=== PATIENT | male | born 1970 | race African-American/Black ===

== ENCOUNTER 2022-01-11 11:34 | Inpatient (IN) | payer SELFPAY ==
[2022-01-11] MEDS ORDERED: ASPIRIN 81 MG CHEWABLE TABLET ONE (12:13)
[2022-01-11] MEDS ORDERED: AZITHROMYCIN 250 MG TAB ONE (12:13)
[2022-01-11] MEDS ORDERED: NA CHLORIDE 0.9% 500 ML ONE ×2 (12:14→14:31)
[2022-01-11] MEDS ORDERED: FAMOTIDINE 20 MG TAB ONE (12:14)
[2022-01-11] MEDS ORDERED: NA CHLORIDE 0.9% 1,000 ML ONE ×3 (12:14→22:42)
--- NOTE | 2022-01-11 12:25 | RAD REPORT ---
EXAM DESCRIPTION: Danilo Single View01/11/2022 12:10 pm CLINICAL HISTORY: Cough COMPARISON: none FINDINGS: Left upper lobe consolidation. Additional bilateral pulmonary opacities. Heart is normal size. IMPRESSION: Bilateral pulmonary opacities left greater than right likely pneumonia
[2022-01-11 12:39] LABS: Absolute Lymphocytes (CBC) 1.5 K/uL (0.7-4.9); Hematocrit 36.6 % (39.6-49.0); Lymphocytes % 8.2 % (15.3-44.8); MCV 84.6 fL (80-100); MPV 8.1 fL (7.6-11.3); RBC Red Blood Cell Count 4.33 M/uL (4.33-5.43)
--- NOTE | 2022-01-11 12:42 | EDPHYS ---
Physician Documentation [facility] Name: Srinivas Crawford III Age: 51 yrs Sex: Male : 1970 Arrival Date: 01/11/2022 Time: 11:36 Bed 6 Private MD: ED Physician Collin Campbell HPI: 01/11 12:32 This 51 yrs old Black Male presents to ER via EMS with complaints of URI AND SOB, DIZZY.jeremy 12:32 The patient or guardian reports airway noise, cough, difficulty breathing, flu jeremy symptoms, arthralgias, low-grade fever, myalgias. Onset: The symptoms/episode began/occurred 6 day(s) ago. Modifying factors: The symptoms are alleviated by remaining still, the symptoms are aggravated by activity. NO IMMUNIZATIONS, 6-7 DAYS WITH COUGH AND URI SYMPTOMS, COVID EXPOSURE AT WORK. The patient presents with dizziness, generalized weakness. Modifying factors: The symptoms are alleviated by nothing, the symptoms are aggravated by nothing. Historical: - Allergies: 11:37 No Known Allergies; [place] - PMHx: 11:37 Hypertensive disorder; [place] - Immunization history:: Adult Immunizations up to date. - Social history:: Smoking status: Patient denies any tobacco usage or history of. ROS: 12:36 Eyes: Negative for injury, pain, redness, and discharge, ENT: Negative for injury, jeremy pain, and discharge, Neck: Negative for injury, pain, and swelling, Cardiovascular: Negative for chest pain, palpitations, and edema, Abdomen/GI: Negative for abdominal pain, nausea, vomiting, diarrhea, and constipation, Back: Negative for injury and pain, : Negative for injury, bleeding, discharge, and swelling, MS/Extremity: Negative for injury and deformity, Skin: Negative for injury, rash, and discoloration, Neuro: Negative for headache, weakness, numbness, tingling, and seizure. 12:36 Constitutional: Positive for body aches, chills, fatigue, fever. 12:36 Respiratory: Positive for cough, "sounds productive", dyspnea on exertion, orthopnea, shortness of breath, on exertion. wheezing, expiratory. Exam: 12:36 Constitutional: This is a well developed, well nourished patient who is awake, alert, jeremy and in no acute distress. Head/Face: Normocephalic, atraumatic. Eyes: Pupils equal round and reactive to light, extra-ocular motions intact. Lids and lashes normal. Conjunctiva and sclera are non-icteric and not injected. Cornea within normal limits. Periorbital areas with no swelling, redness, or edema. ENT: Nares patent. No nasal discharge, no septal abnormalities noted. Tympanic membranes are normal and external auditory canals are clear. Oropharynx with no redness, swelling, or masses, exudates, or evidence of obstruction, uvula midline. Mucous membranes moist. Neck: Trachea midline, no thyromegaly or masses palpated, and no cervical lymphadenopathy. Supple, full range of motion without nuchal rigidity, or vertebral point tenderness. No Meningismus. Chest/axilla: Normal chest wall appearance and motion. Nontender with no deformity. No lesions are appreciated. Cardiovascular: Regular rate and rhythm with a normal S1 and S2. No gallops, murmurs, or rubs. Normal PMI, no JVD. No pulse deficits. Abdomen/GI: Soft, non-tender, with normal bowel sounds. No distension or tympany. No guarding or rebound. No evidence of tenderness throughout. Back: No spinal tenderness. No costovertebral tenderness. Full range of motion. Male : Normal genitalia with no discharge or lesions. Skin: Warm, dry with normal turgor. Normal color with no rashes, no lesions, and no evidence of cellulitis. MS/ Extremity: Pulses equal, no cyanosis. Neurovascular intact. Full, normal range of motion. Neuro: Awake and alert, GCS 15, oriented to person, place, time, and situation. Cranial nerves II-XII grossly intact. Motor strength 5/5 in all extremities. Sensory grossly intact. Cerebellar exam normal. Normal gait. Psych: Awake, alert, with orientation to person, place and time. Behavior, mood, and affect are within normal limits. 12:36 Respiratory: mild respiratory distress is noted, Respirations: normal, Breath sounds: are clear throughout, Respiratory rate: COUGH AND CONGESTION, WORSE 12:51 ECG was reviewed by the Attending Physician. [facility] 16:03 ECG was reviewed by the Attending Physician. [facility] Vital Signs: 11:36 BP 132 / 75; Pulse 88; Resp 22; Temp 99.0(O); Pulse Ox 100% on R/A; Weight 127.01 kg; [place] Height 5 ft. (152.40 cm); 12:00 BP 118 / 59; Pulse 88; Resp 24; Pulse Ox 93% on R/A; [place] 12:45 BP 115 / 63; Pulse 87; Resp 24; Pulse Ox 94% on R/A; [place] 12:47 BP 132 / 50; Pulse 88; Resp 22; Pulse Ox 99% on R/A; [place] 13:00 BP 127 / 87; Pulse 89; Resp 24; Pulse Ox 94% on R/A; [facility] 14:14 BP 138 / 73; Pulse 99; Resp 26; Pulse Ox 100% on 28% BiPAP; [place] 14:47 BP 143 / 64; Pulse 101; Resp 26; Pulse Ox 100% on 28% BiPAP; [place] 15:00 BP 137 / 59; Pulse 96; Resp 26; Pulse Ox 98% on 28% BiPAP; [place] 15:00 BP 161 / 86; Pulse 99; Resp 24; Pulse Ox 98% on 28% BiPAP; [facility] 15:50 BP 156 / 80; Pulse 98; Resp 24; Pulse Ox 100% on 28% BiPAP; [place] 17:30 BP 144 / 76; Pulse 86; Resp 26; Pulse Ox 100% on 28% BiPAP; [facility] 11:36 Body Mass Index 54.68 (127.01 kg, 152.40 cm) [facility] MDM: 11:45 Patient medically screened. [facility] 12:37 Differential diagnosis: bronchitis, flu, URI. Antibiotic administration: Rocephin and jeremy Zithromax given. Differential Diagnosis altered mental status, sepsis, flu, Obstructed Airway Bronchitis Influenza Upper Respiratory Infection Sinusitis Pharyngitis. Differential diagnosis: cardiac arrhythmia, CVA, generalized weakness. Data reviewed: vital signs, nurses notes, lab test result(s), EKG, radiologic studies, plain films. Data interpreted: ekg monitor: rate is 88 beats/min, rhythm is regular, Pulse oximetry: on room air is 100 %. Test interpretation: by ED physician or midlevel provider: ECG, plain radiologic studies. Counseling: I had a detailed discussion with the patient and/or guardian regarding: the historical points, exam findings, and any diagnostic results supporting the discharge/admit diagnosis, lab results, radiology results, the need for further work-up and treatment in the hospital. 01/11 11:46 Order name: Basic Metabolic Panel; Complete Time: 15:09 jeremy 01/11 11:46 Order name: CBC with Diff; Complete Time: 12:52 [facility] 01/11 11:46 Order name: D-Dimer; Complete Time: 12:58 [facility] 01/11 11:46 Order name: LFT's; Complete Time: 15:09 [facility] 01/11 11:46 Order name: Magnesium; Complete Time: 15:09 [facility] 01/11 11:46 Order name: NT PRO-BNP; Complete Time: 15:09 [facility] 01/11 11:46 Order name: PT-INR; Complete Time: 12:58 [facility] 01/11 11:46 Order name: Troponin HS; Complete Time: 15:09 [facility] 01/11 11:56 Order name: SARS RAPID; Complete Time: 13:02 [facility] 01/11 12:22 Order name: Sed Rate; Complete Time: 13:42 [facility] 01/11 12:22 Order name: CRP; Complete Time: 13:20 [facility] 01/11 12:30 Order name: Blood Culture Adult (2) [facility] 01/11 12:34 Order name: SARS-COV-2 RT PCR (Document "Date of Onset" if Symptomatic); Complete Time: em1 14:11 01/11 12:38 Order name: Lactate; Complete Time: 13:10 em1 01/11 12:57 Order name: ABG; Complete Time: 15:09 [facility] 01/11 13:17 Order name: Uric Acid [facility] 01/11 13:22 Order name: LDH [facility] 01/11 13:25 Order name: Urine Osmolality [facility] 01/11 13:25 Order name: Urine Potassium Random [facility] 01/11 13:25 Order name: Urine Sodium Random [facility] 01/11 14:33 Order name: Uric Acid; Complete Time: 15:09 EDMO 01/11 14:33 Order name: Lactic Dehydrogenase; Complete Time: 15:09 EDMO 01/11 15:06 Order name: Urine Dipstick-Ancillary; Complete Time: 15:09 EDMS 01/11 15:10 Order name: Chem 7 [facility] 01/11 15:21 Order name: UR SODIUM; Complete Time: 16:02 EDMS 01/11 15:21 Order name: UR POTASSIUM; Complete Time: 16:02 EDMS 01/11 16:02 Order name: Osmolality, Urine; Complete Time: 16:10 EDMO 01/11 16:35 Order name: Basic Metabolic Panel; Complete Time: 16:45 EDMS 08/07 16:57 Order name: Hemoglobin A1c; Complete Time: 18:36 EDMS 01/11 17:01 Order name: Lipid Profile; Complete Time: 18:36 EDMS 01/11 11:46 Order name: XRAY Chest (1 view); Complete Time: 12:52 [facility] 01/11 13:10 Order name: CT Chest Abdomen Pelvis W/O Contrast [facility] 01/11 13:15 Order name: BIPAP [facility] 01/11 14:58 Order name: CT; Complete Time: 15:09 EDMS 01/11 17:58 Order name: NM; Complete Time: 18:36 EDMS 01/11 20:12 Order name: XRAY Chest (1 view) bb 01/11 20:41 Order name: RAD EDMS 01/12 07:09 Order name: CBC with Automated Diff EDMS 01/12 07:25 Order name: Glucose, Ancillary Testing EDMS 01/12 07:44 Order name: Comprehensive Metabolic Panel EDMS 01/12 08:01 Order name: PTH Intact EDMS 01/12 08:08 Order name: Phosphorus EDMS 01/12 08:08 Order name: Creatine Phosphokinase EDMS 01/12 08:08 Order name: Thyroid Stimulating Hormone EDMS 01/12 09:11 Order name: Rheumatoid Factor EDMS 01/12 09:31 Order name: Miscellaneous Test Lab EDMS 01/12 11:57 Order name: Glucose, Ancillary Testing EDMS 01/12 17:28 Order name: Glucose, Ancillary Testing EDMS 01/12 22:03 Order name: Glucose, Ancillary Testing EDMS 01/11 11:46 Order name: EKG; Complete Time: 11:48 [facility] 01/11 11:46 Order name: Cardiac monitoring; Complete Time: 12:42 [facility] 01/11 11:46 Order name: EKG - Nurse/Tech; Complete Time: 12:42 [facility] 01/11 11:46 Order name: IV Saline Lock; Complete Time: 12:42 [facility] 01/11 11:46 Order name: Labs collected and sent; Complete Time: 12:42 [facility] 01/11 11:46 Order name: O2 Per Protocol; Complete Time: 12:42 [facility] 01/11 11:46 Order name: O2 Sat Monitoring; Complete Time: 12:42 [facility] 01/11 12:57 Order name: Almonte; Complete Time: 14:14 [facility] 01/11 12:57 Order name: IV Saline Lock - Large Bore; Complete Time: 12:58 [facility] 01/11 15:10 Order name: EKG; Complete Time: 15:14 [facility] 01/11 15:10 Order name: EKG - Nurse/Tech; Complete Time: 15:45 [facility] EC:51 Rate is 78 beats/min. Rhythm is regular. MO interval is normal. QRS interval is normal. jeremy QT interval is normal. No Q waves. T waves are Normal. T waves are Peaked. No ST changes noted. Clinical impression: Suggests hyperkalemia. Interpreted by me. Reviewed by me. 16:03 Rate is 85 beats/min. Rhythm is regular. QRS Nelson is Normal. MO interval is normal. QRS jeremy interval is normal. QT interval is normal. No Q waves. T waves are Normal. T waves are Peaked. No ST changes noted. Clinical impression: NSR w/ Non-specific ST/T Changes, Suggests hyperkalemia, and No evidence of ischemia. Interpreted by me. Reviewed by me. Administered Medications: 13:24 Discontinued: NS 0.9% 1000 ml IV at 125 ml/hr continuous jeremy 12:42 Drug: NS 0.9% 500 ml Route: IV; Rate: bolus; Site: right antecubital; [facility] 13:46 Follow up: Response: No adverse reaction [place] 14:12 Follow up: IV Status: Completed infusion [facility] 12:42 Drug: NS 0.9% 1000 ml Route: IV; Rate: 125 ml/hr; Site: left antecubital; [facility] 12:42 Drug: Pepcid (famotidine) 40 mg Route: PO; [place] 14:11 Follow up: Response: No adverse reaction [place] 12:42 Drug: Aspirin Chewable Tablet 324 mg Route: PO; [facility] 14:16 Follow up: Response: No adverse reaction [place] 12:42 Drug: Zithromax (azithromycin) 500 mg Route: PO; [facility] 14:16 Follow up: Response: No adverse reaction [place] 12:46 Drug: SOLU-Medrol (methylPrednisoLONE) 125 mg Route: IVP; Site: right antecubital; [facility] 12:47 Follow up: Response: No adverse reaction [place] 13:01 CANCELLED (Duplicate Order): Lasix (furosemide) 40 mg IVP once; give over 2 minutes jeremy 13:12 Not Given (Duplicate Order): D50W 50 ml IVP once; (1 amp) jeremy 13:41 Drug: Sodium Bicarbonate 0.5 amp Route: IVP; Site: left antecubital; [facility] 14:10 Follow up: Response: No adverse reaction [place] 14:10 Follow up: Response: No adverse reaction [facility] 13:42 Drug: Insulin Regular Human 10 units {Co-Signature: hb (Aviva Acosta RN).} Route: [place] IVP; Site: left antecubital; 14:13 Follow up: Response: No adverse reaction [place] 13:42 Drug: Kayexalate (polystyrene) 60 grams Route: PO; [facility] 14:13 Follow up: Response: No adverse reaction [place] 13:42 Drug: Albuterol - atroVENT (ipratropium) (3:1) (2.5 mg - 0.5 mg) 3 ml Route: Nebulizer; [place] 14:11 Follow up: Response: No adverse reaction [place] 13:42 Drug: Lasix (furosemide) 100 mg Route: IVP; Site: left antecubital; [facility] 14:10 Follow up: Response: No adverse reaction [place] 13:44 Drug: Rocephin (cefTRIAXone) 2 grams Route: IV; Rate: per protocol; Site: right med[place] antecubital; 14:12 Follow up: IV Status: Completed infusion [facility] 13:44 Drug: Lovenox (enoxaparin) 100 mg Route: Sub-Q; Site: right lower abdomen; [facility] 13:46 Follow up: Response: No adverse reaction [place] 13:44 Drug: Calcium Gluconate 1 grams Route: IVPB; Infused Over: 10 mins; Site: right med[place] antecubital; 14:16 Follow up: IV Status: Completed infusion [place] 13:46 Drug: NS 0.9% 1000 ml Route: IV; Rate: 1 bolus; Site: right antecubital; [facility] 13:46 Follow up: IV Status: Completed infusion [facility] 13:47 Follow up: IV Status: Completed infusion [facility] 14:12 Drug: predniSONE 60 mg Route: PO; [facility] 14:12 Follow up: Response: No adverse reaction [place] 14:15 Drug: D10 in Water [4ml/kg] 250 ml Route: IVP; Site: left antecubital; [facility] 14:15 Follow up: Response: No adverse reaction [facility] 14:58 Drug: NS 0.9% 500 ml Route: IV; Rate: bolus; Site: left antecubital; [facility] 15:46 Follow up: IV Status: Completed infusion [facility] 14:59 Drug: NS 0.9% 1000 ml Route: IV; Rate: 100 ml/hr; Site: left antecubital; med[facility] 15:46 Drug: Lokelma Powder 10 grams Route: PO; [facility] 15:46 Follow up: Response: No adverse reaction [place] 17:40 Drug: Kayexalate (polystyrene) 60 grams Route: PO; [facility] 17:43 Follow up: Response: No adverse reaction [place] 17:40 Drug: D5W 1000 ml, Sodium Bicarbonate 150 mEq Route: IV; Rate: 100 ml/hr; Site: left medina antecubital; 17:41 Drug: Insulin Regular Human 10 units {Co-Signature: ll1 (Dotty Darby RN).} Route: IVP; medina Site: right antecubital; 17:41 Drug: Albuterol - atroVENT (ipratropium) (3:1) (2.5 mg - 0.5 mg) 3 ml Route: Nebulizer; [facility] 17:42 Drug: Sodium Bicarbonate 1 amp Route: IVP; Site: right antecubital; [facility] 17:43 Follow up: Response: No adverse reaction [place] 17:42 Drug: D10 in Water [4ml/kg] 250 ml Route: IVP; Site: left antecubital; [facility] 18:31 Follow up: Response: No adverse reaction [place] 17:43 Drug: Calcium Gluconate 1 grams Route: IVPB; Infused Over: 10 mins; Site: left antecubital; Disposition Summary: 01/11/22 12:41 Hospitalization Ordered Hospitalization Status: Inpatient Admission jeremy Provider: Parker Hrenandez cha Condition: Fair jeremy Problem: new jeremy Symptoms: have worsened jeremy Bed/Room Type: Standard jeremy Location: Telemetry/MedSurg (Inpatient)(01/12/22 19:57) cg Room Assignment: [facility](01/12/22 19:57) cg Diagnosis - Dyspnea jeremy - Other viral pneumonia - BILATERAL jeremy - Pneumonia due to other specified bacteria jeremy - Hypoxemia jeremy - Essential (primary) hypertension jeremy - Acute kidney failure, unspecified jeremy - Hyperkalemia jeremy - Hypo-osmolality and hyponatremia jeremy Forms: - Medication Reconciliation Form jeremy - SBAR form jeremy Signatures: Dispatcher [employer] EDMS Adrian, Collin, MD MD jeremy Pawel, Gregoria, Aviva Cain RN, RN RN ha Heather Baxter RN Dotty Darby RN ll1 Corrections: (The following items were deleted from the chart) 13: 12:57 Lasix (furosemide) 40 mg IVP once; give over 2 minutes ordered. [facility] : 12:41 Telemetry/MedSurg (Inpatient) jeremy [facility] 13: 12:41 jeremy [facility] 19:00 13:01 Intensive Care Unit [facility] 19:00 13: [facility] 01/12 19:57 01/11 19:00 [facility] ER HOLD cg 01/12 19:57 01/11 19:00 ERHOLD- cg cg
--- NOTE | 2022-01-11 12:42 | ER ---
Nurse's Notes [facility] Name: Srinivas Crawford III Age: 51 yrs Sex: Male : 1970 Arrival Date: 01/11/2022 Time: 11:36 Bed 6 Private MD: Diagnosis: Dyspnea;Other viral pneumonia-BILATERAL;Pneumonia due to other specified bacteria;Hypoxemia;Essential (primary) hypertension;Acute kidney failure, unspecified;Hyperkalemia;Hypo-osmolality and hyponatremia Presentation: 01/11 11:36 Chief complaint: Patient states: pt presented to ED reporting dizziness off and on x2 medina days, and body aches. Coronavirus screen: Vaccine status: Patient reports being unvaccinated. Ebola Screen: Patient denies travel to an Ebola-affected area in the 21 days before illness onset. Initial Sepsis Screen: Does the patient meet any 2 criteria? RR > 20 per min. Does the patient have a suspected source of infection? No. Patient's initial sepsis screen is negative. Risk Assessment: Do you want to hurt yourself or someone else? Patient reports no desire to harm self or others. Onset of symptoms was January 09, 2022. 11:36 Method Of Arrival: EMS: [facility] [place] 11:36 Acuity: DANIEL 3 medina 13:36 Acuity: DANIEL 2 iw Triage Assessment: 11:37 General: Appears in no apparent distress. Behavior is calm, cooperative. Pain: medina Complains of pain in generlized body aches. Historical: - Allergies: 11:37 No Known Allergies; medina - PMHx: 11:37 Hypertensive disorder; medina - Immunization history:: Adult Immunizations up to date. - Social history:: Smoking status: Patient denies any tobacco usage or history of. Screenin:00 Abuse screen: Denies threats or abuse. Denies injuries from another. Nutritional medina screening: No deficits noted. Tuberculosis screening: No symptoms or risk factors identified. Fall Risk None identified. Assessment: 12:00 Pain: Complains of pain in generalized. Neuro: Reports dizziness. Cardiovascular: medina Reports lightheadedness. 01/12 12:19 Reassessment: Dr. Carr at bedside discussing procedure with patient at this time. ld1 Vital Signs: 01/11 11:36 BP 132 / 75; Pulse 88; Resp 22; Temp 99.0(O); Pulse Ox 100% on R/A; Weight 127.01 kg; medina Height 5 ft. (152.40 cm); 12:00 BP 118 / 59; Pulse 88; Resp 24; Pulse Ox 93% on R/A; medina 12:45 BP 115 / 63; Pulse 87; Resp 24; Pulse Ox 94% on R/A; medina 12:47 BP 132 / 50; Pulse 88; Resp 22; Pulse Ox 99% on R/A; medina 13:00 BP 127 / 87; Pulse 89; Resp 24; Pulse Ox 94% on R/A; medina 14:14 BP 138 / 73; Pulse 99; Resp 26; Pulse Ox 100% on 28% BiPAP; medina 14:47 BP 143 / 64; Pulse 101; Resp 26; Pulse Ox 100% on 28% BiPAP; medina 15:00 BP 137 / 59; Pulse 96; Resp 26; Pulse Ox 98% on 28% BiPAP; medina 15:00 BP 161 / 86; Pulse 99; Resp 24; Pulse Ox 98% on 28% BiPAP; medina 15:50 BP 156 / 80; Pulse 98; Resp 24; Pulse Ox 100% on 28% BiPAP; medina 17:30 BP 144 / 76; Pulse 86; Resp 26; Pulse Ox 100% on 28% BiPAP; medina 11:36 Body Mass Index 54.68 (127.01 kg, 152.40 cm) medina ED Course: 11:36 Patient arrived in ED. medina 11:37 Triage completed. medina 11:37 Arm band placed on. medina 11:45 Collin Campbell MD is Attending Physician. [facility] 12:00 Aviva Rowley RN is Primary Nurse. med[place] 12:00 Patient has correct armband on for positive identification. Bed in low position. medina 12:00 No provider procedures requiring assistance completed. medina 12:12 XRAY Chest (1 view) In Process Unspecified. EDMS 12:40 Parker Hernandez MD is Hospitalizing Provider. jeremy 14:10 Uric Acid Sent. medina 15:06 Urine Osmolality Sent. medina 15:06 Urine Sodium Random Sent. medina 15:06 Urine Potassium Random Sent. medina 15:16 Inserted saline lock: 20 gauge in right in left antecubital area, using aseptic medina technique. 15:17 Almonte cath inserted, using sterile technique, 16 Fr., by mt, balloon inflated, urine medina specimen collected. 15:45 Chem 7 Sent. medina 20:23 dialysis catheter to left subclavian pt tolerated well. Patient admitted, IV remains in kl place. Administered Medications: 13:24 Discontinued: NS 0.9% 1000 ml IV at 125 ml/hr continuous jeremy 12:42 Drug: NS 0.9% 500 ml Route: IV; Rate: bolus; Site: right antecubital; medina 13:46 Follow up: Response: No adverse reaction medina 14:12 Follow up: IV Status: Completed infusion medina 12:42 Drug: NS 0.9% 1000 ml Route: IV; Rate: 125 ml/hr; Site: left antecubital; medina 12:42 Drug: Pepcid (famotidine) 40 mg Route: PO; medina 14:11 Follow up: Response: No adverse reaction medina 12:42 Drug: Aspirin Chewable Tablet 324 mg Route: PO; medina 14:16 Follow up: Response: No adverse reaction medina 12:42 Drug: Zithromax (azithromycin) 500 mg Route: PO; medina 14:16 Follow up: Response: No adverse reaction medina 12:46 Drug: SOLU-Medrol (methylPrednisoLONE) 125 mg Route: IVP; Site: right antecubital; medina 12:47 Follow up: Response: No adverse reaction medina 13:01 CANCELLED (Duplicate Order): Lasix (furosemide) 40 mg IVP once; give over 2 minutes jeremy 13:12 Not Given (Duplicate Order): D50W 50 ml IVP once; (1 amp) jeremy 13:41 Drug: Sodium Bicarbonate 0.5 amp Route: IVP; Site: left antecubital; medina 14:10 Follow up: Response: No adverse reaction medina 14:10 Follow up: Response: No adverse reaction medina 13:42 Drug: Insulin Regular Human 10 units {Co-Signature: hb (Aviva Acosta RN).} Route: medina IVP; Site: left antecubital; 14:13 Follow up: Response: No adverse reaction medina 13:42 Drug: Kayexalate (polystyrene) 60 grams Route: PO; medina 14:13 Follow up: Response: No adverse reaction medina 13:42 Drug: Albuterol - atroVENT (ipratropium) (3:1) (2.5 mg - 0.5 mg) 3 ml Route: Nebulizer; medina 14:11 Follow up: Response: No adverse reaction medina 13:42 Drug: Lasix (furosemide) 100 mg Route: IVP; Site: left antecubital; medina 14:10 Follow up: Response: No adverse reaction medina 13:44 Drug: Rocephin (cefTRIAXone) 2 grams Route: IV; Rate: per protocol; Site: right medina antecubital; 14:12 Follow up: IV Status: Completed infusion medina 13:44 Drug: Lovenox (enoxaparin) 100 mg Route: Sub-Q; Site: right lower abdomen; medina 13:46 Follow up: Response: No adverse reaction medina 13:44 Drug: Calcium Gluconate 1 grams Route: IVPB; Infused Over: 10 mins; Site: right medina antecubital; 14:16 Follow up: IV Status: Completed infusion medina 13:46 Drug: NS 0.9% 1000 ml Route: IV; Rate: 1 bolus; Site: right antecubital; medina 13:46 Follow up: IV Status: Completed infusion medina 13:47 Follow up: IV Status: Completed infusion medina 14:12 Drug: predniSONE 60 mg Route: PO; medina 14:12 Follow up: Response: No adverse reaction medina 14:15 Drug: D10 in Water [4ml/kg] 250 ml Route: IVP; Site: left antecubital; medina 14:15 Follow up: Response: No adverse reaction medina 14:58 Drug: NS 0.9% 500 ml Route: IV; Rate: bolus; Site: left antecubital; medina 15:46 Follow up: IV Status: Completed infusion medina 14:59 Drug: NS 0.9% 1000 ml Route: IV; Rate: 100 ml/hr; Site: left antecubital; medina 15:46 Drug: Lokelma Powder 10 grams Route: PO; medina 15:46 Follow up: Response: No adverse reaction medina 17:40 Drug: Kayexalate (polystyrene) 60 grams Route: PO; medina 17:43 Follow up: Response: No adverse reaction medina 17:40 Drug: D5W 1000 ml, Sodium Bicarbonate 150 mEq Route: IV; Rate: 100 ml/hr; Site: left medina antecubital; 17:41 Drug: Insulin Regular Human 10 units {Co-Signature: ll1 (Dotty Darby RN).} Route: IVP; medina Site: right antecubital; 17:41 Drug: Albuterol - atroVENT (ipratropium) (3:1) (2.5 mg - 0.5 mg) 3 ml Route: Nebulizer; medina 17:42 Drug: Sodium Bicarbonate 1 amp Route: IVP; Site: right antecubital; medina 17:43 Follow up: Response: No adverse reaction medina 17:42 Drug: D10 in Water [4ml/kg] 250 ml Route: IVP; Site: left antecubital; medina 18:31 Follow up: Response: No adverse reaction medina 17:43 Drug: Calcium Gluconate 1 grams Route: IVPB; Infused Over: 10 mins; Site: left medina antecubital; Medication: 12:00 VIS not applicable for this client. medina Outcome: 12:41 Decision to Hospitalize by Provider. jeremy 01/12 07:00 Admitted to ER Hold. [facility] documentation. jl7 Condition: stable Discharge instructions given to patient, Instructed on the need for admit, Demonstrated understanding of instructions. 22:29 Patient left the ED. as6 Signatures: Dispatcher [employer] Haily Mann RN RN kl Anderson, Corey, MD MD cha Williams, Irene, RN RN iw Leal, Jahala, RN RN jl7 Elise Caputo RN RN ld1 Slawson, Ashby, RN RN as6 Aviva Rowley RN RN medina Aviva Acosta RN Dotty Darby RN ll1 Corrections: (The following items were deleted from the chart) 01/11 14:11 14:10 D10 in Water [4ml/kg] 250 ml IVP in left antecubital medina medina
[2022-01-11 12:48] LABS: Protime INR 1.02
[2022-01-11] MEDS ORDERED: predniSONE 20 MG TAB ONE (12:53)
[2022-01-11] MEDS ORDERED: METHYLPREDNISOLONE 125 MG INJ ONE (12:53)
[2022-01-11 12:56] LABS: SARS-CoV-2 Antigen Rapid Res Negative (Negative)
[2022-01-11 13:17] LABS: Bicarbonate 18 mmol/L (21-32); Glucose Level 120 mg/dL (74-106); Sodium Level 123 mmol/L (136-145)
[2022-01-11 13:18] LABS: ALT/SGPT 189 U/L (12-78); AST/SGOT 182 U/L (15-37); Alkaline Phosphatase 104 U/L (45-117); BUN Blood Urea Nitrogen 143 mg/dL (7-18); Bilirubin Direct < 0.1 mg/dL (0-0.2); Bilirubin Total 0.4 mg/dL (0.2-1.0); Glomerular Filtration Rate 4 ml/min (=/>90)
[2022-01-11 13:19] LABS: Albumin 2.2 g/dL (3.4-5.0); NT PRO-BNP 82 pg/mL (<125); Protein, Total 8.1 g/dL (6.4-8.2); Troponin High Sensitivity 55.5 (<58.9)
[2022-01-11 13:20] LABS: Potassium 6.4 mmol/L (3.5-5.1)
[2022-01-11] MEDS ORDERED: ALBUTEROL 2.5 MG/3 ML NEB SOL ONE ×3 (13:20→19:18)
[2022-01-11] MEDS ORDERED: ENOXAPARIN 100 MG/ML SYR SQ ONE (13:20)
[2022-01-11] MEDS ORDERED: CEFTRIAXONE 2000 MG/VIAL ONE (13:20)
[2022-01-11] MEDS ORDERED: IPRATROPIUM BROM 0.5MG/2.5ML ONE ×3 (13:21→19:19)
[2022-01-11] MEDS ORDERED: INSULIN -REGULAR HUMAN 50 UNIT/0.5 ML ML ONE ×2 (13:21→17:05)
[2022-01-11] MEDS ORDERED: CALCIUM GLUCONATE 1 GM IVPB 1 GM/50 ML BAG IV ONE ×2 (13:21→17:10)
[2022-01-11] MEDS ORDERED: SOD POLYSTYREN SUL 15 GM/60 ML UCUP ONE ×2 (13:21→17:08)
[2022-01-11] MEDS ORDERED: FUROSEMIDE 100 MG/10 ML VIAL IV ONE (13:27)
[2022-01-11] MEDS ORDERED: DEXTROSE 10%-WATER 500 ML IV ONE ×2 (13:28→17:10)
[2022-01-11] MEDS ORDERED: HYDROCODONE/APAP 5/325 MG TAB PO PRN (13:31)
[2022-01-11] MEDS ORDERED: ONDANSETRON 4 MG/2 ML VIAL IV PRN (13:33)
[2022-01-11] MEDS ORDERED: ACETAMINOPHEN 500 MG TAB PO PRN (13:33)
[2022-01-11 14:33] LABS: Uric Acid 13.8 mg/dL (3.5-7.2)
--- NOTE | 2022-01-11 14:52 | P.CNS ---
Date of Consult: 01/11/22 Reason for Consult: Hyperkalemia, ELENA , Hyponatremia Requesting Physician: Collin Campbell Chief Complaint: SOB, sick History of Present Illness: A 51 y/o AA man with PMHx of Losartan , Obesity Pt presented with SOB , weakness Pt symptoms started ~2wks ago, he had sick contact, pt tried OTC mediations with no improvement in symptoms ,pt stated he was taking NSAID once or twice weekly for knee pain, he is unaware of any kidney disease, but has not done any labs for years as mentioned above symptoms were getting progressively worse , in ER NA 124, K 6.2, Cr 14, EKG showed T wave changes , pt recieved hyperkalemia treatment ROS General : weakness HEENT: Denies dry, vision changes and headache Resp: have SOB, cough Cardiovascular: denied chest pain, palpitation , no SOB GI: denies abdominal pain, diarrhea or constipation : denies dysuria, urgency, foamy urine or blood tinged urine Musculoskeletal: generalized Ache Endo: denies polyuria and and polydipsia Extre: denies pain numbness and swelling Physical exam General: AAOx3, , obesein distress on BiPAP HEENT PERRLA, moist mucose membrane neck: supple, no elevated JVD CHEST; CTAB, no wheezes or rales HEART : RRR. Normal S1,2 no murmur or rub Abd: distended, NT, jessica catheter Ext: no edema Skin : No rash A/p #ELENA vs CKD non oliguric unknonw baseline cr F/U Abdominal CT will start on dialysis due to hyponatremia, hyperkalemia and acidosis renal dose medications F/U serology W/U # Hyponatremia will improve with HD #Hyperkalmia S/P medical treatment cardiac exercise physiologist HD today # HAGMA will improve with HD #Pneumonia Cont Abx F/U cultures COVID 19 negative # Elevated LFT possibly due to congested liver Total time spent 65 minutes including documentation, reviewing labs , placing orders and discussing with medical team Allergies No Known Allergies Allergy (Verified 01/11/22 13:42) Physical Examination Laboratory Data (last 24 hrs) 01/11/22 13:17: Uric Acid Cancelled 01/11/22 12:27: PT 11.2, INR 1.02 01/11/22 12:27: WBC 18.6 H, Hgb 11.9 L, Hct 36.6 L, Plt Count 551 H 01/11/22 12:27: Sodium 123 L, Potassium 6.4 H*, BUN 143 H, Creatinine 14.70 H*, Glucose 120 H, Uric Acid 13.8 H, Magnesium 4.0 H*, Total Bilirubin 0.4, AST 182 H, ALT 189 H, Alkaline Phosphatase 104
[2022-01-11 14:54] LABS: Arterial Blood Carboxyhemoglob 0.5 % (0-1.5); Blood Gas Oxyhemoglobin 89.7 % (94-97); Blood O2 Saturation 91.3 % (92-98.5)
--- NOTE | 2022-01-11 14:58 | RAD REPORT ---
EXAM DESCRIPTION: CT - Chest Abd Pelvis Wo Con - 01/11/2022 2:41 pm CLINICAL HISTORY: Chest and abdominal pain. Acute renal failure. Shortness of breath COMPARISON: Chest x-ray January 11, 2022 TECHNIQUE: Computed axial tomography of the chest, abdomen and pelvis was obtained. Oral contrast wa s given. IV contrast was not requested. All CT scans are performed using dose optimization technique as appropriate and may include automated exposure control or mA/KV adjustment according to patient size. FINDINGS: The evaluation of mediastinum, emre, vessels and solid organs is limited secondary to the lack of IV contrast administration Left upper and lower lobe consolidations. The right lung is clear. Mild mediastinal lymphadenopathy. This probably is reactive in nature and can be followed with subseq uent imaging A pleural effusion is not present. A pericardial effusion is not seen. A lung consolidation is not present. The lungs are essentially clear. The liver, spleen, pancreas, adrenals and kidneys appear grossly normal No hydronephrosis. Almonte catheter within the bladder There is no evidence of diverticulitis. Normal appendix. Small inguinal hernias IMPRESSION: Left upper and left lower lobe consolidations likely pneumonia
[2022-01-11 15:05] LABS: Urine Blood 3+ (Negative); Urine Glucose Negative (Negative); Urine Protein 1+ (Negative); Urine pH 5.5 (5.0-7.0)
[2022-01-11] MEDS ORDERED: SODIUM ZIRCONIUM CYCLOSILICATE 10 GM/PKT PO SCH (16:00)
[2022-01-11] MEDS ORDERED: LABETALOL 20 MG/4ML SYRINGE IV PRN (16:00)
--- NOTE | 2022-01-11 16:14 | P.HP ---
Certification for Inpatient With expected LOS: >2 Midnights Patient will require the following post-hospital care: None Practitioner: I am a practitioner with admitting privileges, knowledge of patient current condition, hospital course, and medical plan of care. Services: Services provided to patient in accordance with Admission requirements found in Title 42 Section 412.3 of the Code of Federal Regulations <AmadorabilioBrijesh edmonds - Last Filed: 01/11/22 17:20> Patient History Date of Service: 01/11/22 Reason for admission: SOB, cough History of Present Illness: Patient is a 51-year-old male with a past medical history significant for hypertension and morbid obesity who presents with complaint of cough and upper respiratory symptoms that has been ongoing for the past 1 week. Patient reported that he was exposed to COVID-19 infection at work. Patient reported that he initially started coughing then a couple days later patient developed sore throat and rhinorrhea. Patient started having shortness of breath and difficulty breathing 2 days ago. Patient reported associated signs and symptoms of fatigue, weakness, headache and dizziness. Patient denies any other signs or symptoms. Symptoms are aggravated by exertion and relieved by nothing. Patient decided to present to the hospital due to worsening symptoms. Of note, patient reported that he has not had lab work done or followed up with a doctor in a long time. Home medications list reviewed: Yes - Past Medical/Surgical History Diabetic: No -: Hypertension -: Morbid Obesity Past Surgical History: Reviewed- Non-Contributory - Family History Family History: Reviewed- Non-Contributory - Social History Smoking Status: Never smoker Alcohol use: No CD- Drugs: No Caffeine use: No Place of Residence: Home <Brijesh Valdes - Last Filed: 01/11/22 17:20> Date of Service: 01/11/22 <Parker Hernandez - Last Filed: 01/11/22 17:56> Allergies No Known Allergies Allergy (Verified 01/11/22 13:42) Review of Systems General: Weakness, Other (Fatigue) Eyes: Unremarkable ENT: Throat Pain Respiratory: Cough, Shortness of Breath, Other (rhinorrhea) Cardiovascular: Unremarkable Gastrointestinal: Unremarkable Genitourinary: Unremarkable Musculoskeletal: Unremarkable Integumentary: Unremarkable Neurological: Weakness, Other (Headache ) <LucioAlexaeleazar Edmonds - Last Filed: 01/11/22 17:20> Physical Examination - Physical Exam General: Alert, Oriented x3, Acute distress HEENT: Atraumatic, Normocephalic, PERRLA Neck: Supple, 2+ carotid pulse no bruit, JVD not distended Respiratory: Diminished, Expiratory wheezes, Inspiratory wheezes Cardiovascular: No edema, Normal pulses, Regular rate/rhythm Capillary refill: <2 Seconds Gastrointestinal: Normal bowel sounds Musculoskeletal: No clubbing, No swelling, No contractures, No erythema, No tenderness, No warmth Integumentary: No rashes, No breakdown, No significant lesion, No tenderness/swelling Neurological: Normal speech, Normal strength at 5/5 x4 extr, Sensation intact Lymphatics: No axilla or inguinal lymphadenopathy - Studies Laboratory Data (last 24 hrs) 01/11/22 13:17: Uric Acid Cancelled 01/11/22 12:27: PT 11.2, INR 1.02 01/11/22 12:27: WBC 18.6 H, Hgb 11.9 L, Hct 36.6 L, Plt Count 551 H 01/11/22 12:27: Sodium 123 L, Potassium 6.4 H*, BUN 143 H, Creatinine 14.70 H*, Glucose 120 H, Uric Acid 13.8 H, Magnesium 4.0 H*, Total Bilirubin 0.4, AST 182 H, ALT 189 H, Alkaline Phosphatase 104 <Brijesh Valdes - Last Filed: 01/11/22 17:20> - Studies Laboratory Data (last 24 hrs) 01/11/22 13:17: Uric Acid Cancelled 01/11/22 12:27: PT 11.2, INR 1.02 01/11/22 12:27: WBC 18.6 H, Hgb 11.9 L, Hct 36.6 L, Plt Count 551 H 01/11/22 12:27: Sodium 123 L, Potassium 6.4 H*, BUN 143 H, Creatinine 14.70 H*, Glucose 120 H, Uric Acid 13.8 H, Magnesium 4.0 H*, Total Bilirubin 0.4, AST 182 H, ALT 189 H, Alkaline Phosphatase 104 <Parker Hernandez - Last Filed: 01/11/22 17:56> Assessment and Plan - Plan --Pneumonia. As noted on imaging. Patient placed on antibiotics, steroids and neb treatment with albuterol\Atrovent. --Acute renal failure. Nephrology consulted. Recommends dialysis. Will await further recommendations. --Hyperkalemia. Likely secondary to renal failure. Nephrology consulted.. Lokelma x1 dose given in the ER. Further management per hourly sign language interpreter. --High anion gap metabolic acidosis. Avoid nephrotoxins. Further management per hourly sign language interpreter. --Class III obesity. Likely secondary to excess calories intake. Patient counseled on weight reduction, diet and exercise therapy. --Elevated D-dimer. VQ scan pending. Continue supportive care. --Leukocytosis. Blood cultures pending. Continue antibiotics. --Anemia of chronic disease. H&H stable. We will continue to monitor hemoglobin and transfuse if less than 7.0. -- Hyponatremia. Further management per hourly sign language interpreter. -- Elevated LFTs. Unclear etiology. Will reassess levels in a.m. --Hypertension. We will manage BP with labetalol as needed. -- DVT prophylaxis with heparin subQ Discharge Plan: Home Plan to discharge in: 72 Hours - Advance Directives Does patient have a Living Will: No Does patient have a Durable POA for Healthcare: No - Code Status/Comfort Care Code Status Assessed: Yes Code Status: Full Code Physician Review: Patient Assessed, Agree with Above Assessment and Plan Critical Care: Yes <Brijesh Valdes E - Last Filed: 01/11/22 17:20> Physician Review: Patient Assessed, Agree with Above Assessment and Plan Physician Review Additional Text: I have personally seen and evaluated Mr. Srinivas Crawford. I reviewed the notes and assessments performed by Brijesh Valdes NP. I independently performed my own history and physical examination. I agree with the assessment and plan as outlined in his note. I concur with his documentation of Mr. Crawford. Briefly, Mr. Crawford is presenting with multiple complex medical problems. Firstly, he is in acute renal failure, which requires emergent hemodialysis. I have spoken with Dr. Garcia, who agrees. Dr. Gan will place a temporary hemodialysis catheter shortly and he has agreed to undergo hemodialysis tonight. Secondly, he appears to be in severe sepsis secondary to a left-sided community- acquired pneumonia with respiratory failure requiring BiPAP. He was managed via sepsis bundle protocol with blood cultures, lactic acid, and empiric antibiotics. 30 mL/kg of IV fluids was NOT administered given adequate blood pressures, lactic acid < 4, and gross hypervolemic state with concern for renal failure. He has been started on vancomycin and cefepime. In regards to his electrolyte abnormalities, he has hyponatremia with hyperkalemia. His EKG revealed peaked T-waves. He has been treated with calcium gluconate, insulin + dextrose, kayexalate, furosemide, and a bicarbonate drip per Nephrology recommendations. In addition to the above abnormalities, he had an elevated d-dimer to 6517 and elevated LFTs. For the d-dimer a V/Q scan was performed, and the results are currently pending. I suspect the elevated LFTs to be secondary to congestive hepatopathy from volume overload vs an underlying chronic liver disease. Will admit him to ICU and monitor closely. His prognosis is guarded at this time. Parker Hernandez M.D. <Parker Hernandez - Last Filed: 01/11/22 17:56>
[2022-01-11 16:34] LABS: Potassium 6.6 mmol/L (3.5-5.1)
[2022-01-11] MEDS ORDERED: METHYLPREDNISOLONE 40 MG INJ IV SCH (17:00)
[2022-01-11] MEDS ORDERED: HEPARIN 5000 UNIT/ML 1 ML VIAL SQ SCH ×2 (17:00→21:00)
[2022-01-11] MEDS ORDERED: D5W 1,000 ML IV ONE (17:24)
[2022-01-11] MEDS ORDERED: SODIUM BICARB 50 MEQ/50ML VIAL ONE (17:26)
[2022-01-11] MEDS ORDERED: D50W 25 GM/50 ML SYRINGE IV PRN (17:44)
[2022-01-11] MEDS ORDERED: GLUCAGON 1 MG/VIAL IM PRN (17:44)
[2022-01-11] MEDS ORDERED: D10W 125 ML IV PRN (17:48)
--- NOTE | 2022-01-11 17:58 | RAD REPORT ---
EXAM DESCRIPTION: NM - Vent Perfusion VQ Scan - 01/11/2022 5:05 pm CLINICAL HISTORY: Shortness of breath COMPARISON: January 11, 2022 chest x-ray TECHNIQUE: 24.8 Mci [id number] was administered by inhalation. First breath, equilibrium, and washout images of the lungs obtained 7.1 millicuries Technetium-99 MAA was administered intravenously. Anterior, posterior, lateral and ob lique views of the lungs were taken. FINDINGS: Moderate defect involves left upper lobe on ventilation sequences. This is smaller on perf usion sequences. Additional matched defect involves the left lower lobe on ventilation and perfusion sequences. Relatively matched defect involves the right lung base on ventilation and perfusion images. IMPRESSION: The patient has a low probability for a pulmonary embolus
[2022-01-11] MEDS ORDERED: VANCOMYCIN 1 GM in NA CHLORIDE 0.9% 250 ML IVPB SCH (18:00)
[2022-01-11] MEDS ORDERED: SOD POLYSTYREN SUL 15 GM/60 ML UCUP PO ONE (18:00)
[2022-01-11] MEDS: D5W 1,000 ML with NA BICARB 8.4% 150 MEQ IV SCH ×2 (18:00)
[2022-01-11] MEDS ORDERED: VANCOMYCIN 2 GM in NA CHLORIDE 0.9% 500 ML IVPB ONE (19:00)
[2022-01-11] MEDS: IPRATROPIUM BROM 0.5MG/2.5ML NEB SCH (19:40)
[2022-01-11] MEDS: ALBUTEROL 2.5 MG/3 ML NEB SOL NEB SCH (19:40)
--- NOTE | 2022-01-11 20:22 | P.CNS ---
Date of Consult: 01/11/22 PC: This 51-year-old male presented to the emergency room with shortness of breath for evaluation and treatment. HPC: Patient apparently has not been feeling well for a while. Has developed a cough and shortness of breath. Came to the emergency room where it was found he has early renal failure. I have been asked to see him regarding the placement of a temporary dialysis catheter for emergency dialysis. PSHx: Denies any prior surgeries PMHx: Hypertension, morbid obesity Social Hx: No known allergies Sys R: Patient has a CPAP mask:, It is difficult to converse with me at the moment. Never had any injury to his clavicles or ribs during his life that he knows of. States he has gained a lot of weight recently. O/E: Awake alert anxious HEENT: Within normal limits Chest: Chest movement is equal bilaterally, Abd: Globular abdomen but soft [place]: No evidence of any clavicular fractures Data: Electrolytes etc. are off suggestive of acute renal failure Impression: Renal failure requiring dialysis Plan: I initially discussed with the patient the placement of the catheter. He had spoken to his dialysis and renal physicians who explained to him what dialysis was. Initially when I spoke to him he declined the procedure. I spoke to his branch operation evaluation manager who kindly came back sat with the patient and answered all h is questions. When I went back in the room the patient was much more calm, and agreeable to having the procedure done. I will place a left subclavian catheter. The risks of this procedure were explained. The possibility of bleeding, infection, collapsing lungs and need for chest tubes were explained. The fact that this may not be a permanent solution to his dialysis needs was also outlined. He understand and wants to proceed.
--- NOTE | 2022-01-11 20:25 | P.OP ---
Preoperative diagnosis: Acute renal failure Postoperative diagnosis: The same Primary procedure: Placement of left subclavian temporary dialysis catheter Anesthesia: Local Estimated blood loss: Less than 10 cc Specimen: None sent Operative Technique: After a timeout and observing universal procedures, the area of the left chest was prepped with a chlorhexidine solution, and draped in the usual manner. The patient was in marked Trendelenburg position, with a roll between his shoulders. He was on satellite project site monitor as well as a pulse ox. He is still connected to the monitor for his vital signs. 1% lidocaine was used to provide local anesthesia to the left subclavicular area. I injected approximately 13 cc. Having obtained good numbness in the area, a finder needle was used to cannulate the left subclavian vein. We were able to find it on the first pass. After aspirating blood, the syringe was detached and a guidewire was passed down through the syringe. We then placed the initial dilator over this area and advanced it easily. The tear-away catheter was now inserted over the guidewire. The inside trochars were removed. The dialysis catheter was now passed down through the tear-away which was used to position the dialysis catheter. The patient was stable throughout the procedure. The catheters were flushed with normal saline sutured in place and a sterile dressing was applied. We are awaiting a chest x-ray. Complications: None Transferred to: Other Condition: Good
--- NOTE | 2022-01-11 20:40 | RAD REPORT ---
EXAM DESCRIPTION: RADChest Single View01/11/2022 8:28 pm CLINICAL HISTORY: Device placement/central venous catheter placement IMPRESSION: Central venous catheter with its tip in the proximal superior vena cava A pneumothorax is not seen
[2022-01-11] MEDS: INSULIN -REGULAR HUMAN 50 UNIT/0.5 ML ML SQ SCH (21:00)
[2022-01-11] MEDS ORDERED: LIDOCAINE 1% MPF 5 ML VIAL ONE (22:41)
[2022-01-11] MEDS: CEFEPIME 1 GM in NA CHLORIDE 0.9% 100 ML IV SCH (23:55)
[2022-01-12] MEDS ORDERED: NA CHLORIDE 0.9% 100 ML ONE ×3 (01:31→22:05)
[2022-01-12] MEDS ORDERED: SOD POLYSTYREN SUL 15 GM/60 ML UCUP ONE (01:31)
[2022-01-12] MEDS ORDERED: CEFEPIME 1 GM/VIAL ONE ×3 (01:32→22:06)
[2022-01-12] MEDS: ALBUTEROL 2.5 MG/3 ML NEB SOL NEB SCH ×4 (02:15→20:00)
[2022-01-12] MEDS: IPRATROPIUM BROM 0.5MG/2.5ML NEB SCH ×4 (02:15→20:00)
[2022-01-12] MEDS ORDERED: IPRATROPIUM BROM 0.5MG/2.5ML ONE ×3 (02:16→13:21)
[2022-01-12] MEDS ORDERED: ALBUTEROL 2.5 MG/3 ML NEB SOL ONE ×3 (02:16→13:21)
[2022-01-12] MEDS ORDERED: VANCOMYCIN 1 GM/VIAL ONE (02:32)
[2022-01-12] MEDS ORDERED: NA CHLORIDE 0.9% 250 ML ONE (02:34)
[2022-01-12] MEDS ORDERED: HEPARIN 5000 UNIT/ML 1 ML VIAL ONE ×2 (02:34→12:44)
[2022-01-12 04:24] VITALS: BMI 47.9
[2022-01-12 07:08] LABS: Absolute Lymphocytes (CBC) 0.8 K/uL (0.7-4.9); Hematocrit 33.6 % (39.6-49.0); Lymphocytes % 4.3 % (15.3-44.8); MCV 85.1 fL (80-100); MPV 8.2 fL (7.6-11.3); RBC Red Blood Cell Count 3.94 M/uL (4.33-5.43)
[2022-01-12] MEDS: INSULIN -REGULAR HUMAN 50 UNIT/0.5 ML ML SQ SCH ×4 (07:21→21:00)
[2022-01-12 07:41] LABS: Bilirubin Total 0.3 mg/dL (0.2-1.0); Protein, Total 7.8 g/dL (6.4-8.2)
[2022-01-12] MEDS: D5W 1,000 ML with NA BICARB 8.4% 150 MEQ IV SCH ×2 (07:43)
[2022-01-12 07:53] LABS: Creatine Phosphokinase > 14 U/L (39-308); Thyroid Stimulating Hormone 0.339 uIU/mL (0.360-3.740)
[2022-01-12] MEDS ORDERED: PNEUMOCOCCAL VACCINE 0.5 ML IMVAC ONE ×2 (08:00→08:53)
[2022-01-12 08:08] LABS: Phosphorus 10.5 mg/dL (2.5-4.9)
[2022-01-12] MEDS ORDERED: AZITHROMYCIN IV 500 MG in NA CHLORIDE 0.9% 250 ML IVPB SCH (09:00)
[2022-01-12] MEDS: ASPIRIN 81 MG CHEWABLE TABLET PO SCH (09:00)
[2022-01-12] MEDS: CEFEPIME 1 GM in NA CHLORIDE 0.9% 100 ML IV SCH ×2 (09:00→21:00)
[2022-01-12] MEDS ORDERED: CEFTRIAXONE 1,000 MG in NA CHLORIDE 0.9% 50 ML IVPB SCH (09:00)
[2022-01-12 09:10] LABS: Rheumatoid Factor NEG (NEG)
--- NOTE | 2022-01-12 13:46 | EKG ---
Test Date: 2022-01-11 Test Time: 15:41:21 Take Away Man: NIRMAL MEASUREMENT RESULTS: Intervals: Rate: 191 AL: 116 QRSD: 94 QT: 254 QTc: 452 [place]: P: 53 AL: 116 QRS: 10 T: 11 INTERPRETIVE STATEMENTS: Sinus tachycardia with frequent premature ventricular complexes in a pattern of bigeminy Inferior infarct, age undetermined Abnormal ECG Compared to ECG 01/11/2022 12:08:47 Myocardial infarct finding now present Sinus rhythm no longer present ST (T wave) deviation no longer present Possible ischemia no longer present Electronically Signed On 01-12-22 13:43:39 CDT by Be Fitch
--- NOTE | 2022-01-12 13:47 | EKG ---
Test Date: 2022-01-11 Test Time: 12:08:47 Bandage Maker: MARZENA MEASUREMENT RESULTS: Intervals: Rate: 153 [place]: 130 QRSD: 94 QT: 260 QTc: 415 [place]: P: 36 [place]: 130 QRS: 11 T: 48 INTERPRETIVE STATEMENTS: Sinus rhythm with frequent premature ventricular complexes ST & T wave abnormality, consider inferolateral ischemia Abnormal ECG Compared to ECG 01/11/2022 12:08:20 No significant changes Electronically Signed On 01-12-22 13:43:47 CDT by Be Fitch
--- NOTE | 2022-01-12 13:47 | EKG ---
Test Date: 2022-01-11 Test Time: 12:08:20 Building Rental Superintendent: MARZENA MEASUREMENT RESULTS: Intervals: Rate: 159 NH: 128 QRSD: 92 QT: 260 QTc: 422 [place]: P: 38 NH: 128 QRS: 11 T: 42 INTERPRETIVE STATEMENTS: Sinus rhythm with frequent premature ventricular complexes ST & T wave abnormality, consider lateral ischemia Abnormal ECG No previous ECG available for comparison Electronically Signed On 01-12-22 13:43:49 CDT by Be Fitch
[2022-01-12] MEDS: HEPARIN 5000 UNIT/ML 1 ML VIAL IV SCH (14:00)
--- NOTE | 2022-01-12 14:25 | P.OP ---
Preoperative diagnosis: Need for Urgent Dialysis Postoperative diagnosis: Need for Urgent Dialysis Primary procedure: Placement of left femoral temporary hemodialysis catheter Secondary procedure: microintroducer used Anesthesia: GETA + Local Estimated blood loss: <5cc Specimen: none Findings: dark non-pulsatile blood returned Complications: None Implants: Mahauker HD catheter Transferred to: Other (er) Condition: Good
[2022-01-12] MEDS ORDERED: D5W 1,000 ML IV ONE (22:05)
[2022-01-12] MEDS ORDERED: SODIUM BICARB 50 MEQ/50ML VIAL ONE (22:05)
[2022-01-13] MEDS: ALBUTEROL 2.5 MG/3 ML NEB SOL NEB SCH ×4 (01:25→19:42)
[2022-01-13] MEDS: IPRATROPIUM BROM 0.5MG/2.5ML NEB SCH ×4 (01:25→19:42)
--- NOTE | 2022-01-13 03:09 | PN ---
Date of Progress Note: 01/12/2022 Chief Complaint: Hyperkalemia, acute kidney injury, hyponatremia, fluid overload. History Of Present Illness: Patient is a 51-year-old man with history of hypertension. He was takin g rohith. He has morbid obesity. He presented to the hospital because of shortness of breath and severe fatigue. He tried ehef-lxo-yzedhmy medication for some malaise without improvement and he was taking nonsteroidal anti-inflammatory twice a week for knee pain. He was not aware of any previous history of kidney disease. Upon arrival to the hospital, he was found to have severe hyperazotemia. BUN was over 100 and sodium 124, potassium 6.2, creatinine 14. EKG showed T-wave changes consistent with hyperkalemia. Patient received treatment for hyperkalemia. Patient received dialysis yesterda y, although catheter was malfunctioning. He had temporary catheter today, and catheter was replaced. The patient has persistent hyperkalemia and dialysis was ordered today for metabolic clearance and to obtain negative fluid balance. Review of Systems: Patient denies PND, orthopnea. He complains of fatigue, he is bedbound. Physical Examination: Lungs: Few crackles at bases. Heart: S1, S2. Abdomen: Soft. Extremities: Edema present. Impression And Plan: 1.Acute kidney injury, severe. Patient has nonoliguric urine output, although azotemia remains leonides rely elevated. Plan is to resume dialysis as far as the patient has a functioning catheter and patie nt will have dialysis with ultrafiltration today. Re-evaluate blood work. 2.Hyperkalemia. Patient will have dialysis with 2 potassium dialysate. 3.Hyponatremia secondary to volume overload. Continue dialysis and obtain negative fluid balance. Continue to monitor p.o. intake and p.o. fluid. 4.Hypertension. Monitor blood pressure. JAMMIE inhibitor on hold and angiotensin receptor gerardo on hold due to acute kidney injury. EB/MODL Voice ID: [id number] Report ID: [id number]
--- NOTE | 2022-01-13 05:53 | OP ---
Date of Procedure: 01/12/2022 Surgeon: Stephan Hernandez MD, Brief History Of Present Illness: The patient is a 51-year-old gentleman admitted to the ER with lcaude dence of acute renal failure. He had a hemodialysis catheter placed yesterday which was attempted to be used, but had some difficulty in dialysis and as such I was requested to place an additional hemo dialysis catheter today. I therefore spoke with Dr. Varela and agree to place a temporary hemodialysis catheter. The patient to discuss ongoing plans for possible PermCath. I explained the risks, benef its, and alternatives of the above-stated plan for hemodialysis access to the patient including, but not limited to bleeding, infection, damage to the tissue, need further operation and procedures. The patient agreed to proceed as indicated. Preoperative Diagnosis: Need for urgent hemodialysis. Postoperative Diagnosis: Need for urgent hemodialysis. Procedures Performed: Placement of left femoral temporary hemodialysis catheter using microintroduce r set. Anesthesia: Local. Estimated Blood Loss: Less than 5 cc. Specimen: None. Findings: Dark nonpulsatile blood was returned. Complications: None. Implants: Mahurkar temporary hemodialysis catheter placed in the left femoral vein. The patient rem ained in the ER in good condition throughout the procedure. Procedure In Detail: After informed consent was obtained, the patient was prepped and draped in the usual sterile fashion. After adequate anesthesia was achieved using anatomic landmarks, I palpated t he area of the left femoral artery which was found to be quite robust and strong using anatomic landm arks. I then used a microintroducer set to cannulate left femoral vein on first attempt after anesth etizing skin appropriately with 1% lidocaine. A micro wire was advanced at this point. A 5-Romansh s ivy was then advanced into the femoral vein easily without any evidence of complication. Dark red nonpulsatile blood was returned. The micro wire was removed. A standard wire was then placed into t he vein without evidence of complication. I then performed a sequential dilatation of the tract afte r making a small incision at the insertion site using Seldinger technique. I then advanced the john ter. Dark red nonpulsatile blood was returned throughout the procedure without any complications. I then flushed and withdrew dark red nonpulsatile blood and then flushed the catheter until completely clear with sterile saline and then packed it with heparin 2 cc per port. At this point, I then secu red the catheter to the skin with the attached 2-0 nylon suture in the set and a sterile dressing gabriela mary jane over top. The patient tolerated the procedure without any complication, remained in the ER throu ghout the procedure in good condition. All counts were correct at the end of the case. MARIA ISABEL/JEY Voice ID: [id number] Report ID: [id number]
[2022-01-13] MEDS: INSULIN -REGULAR HUMAN 50 UNIT/0.5 ML ML SQ SCH ×5 (07:30→20:59)
[2022-01-13] MEDS: ASPIRIN 81 MG CHEWABLE TABLET PO SCH (08:07)
[2022-01-13] MEDS ORDERED: VANCOMYCIN 2 GM in NA CHLORIDE 0.9% 500 ML IVPB ONE (10:00)
[2022-01-13 11:14] LABS: Potassium 4.3 mmol/L (3.5-5.1)
--- NOTE | 2022-01-13 12:51 | P.PN ---
Subjective Date of Service: 01/12/22 Subjective: No new changes, No C/O voiced, Improving Review of Systems 10-point ROS is otherwise unremarkable Physical Examination - Vital Signs Temperature: 97.1 F Blood Pressure: 118/61 Pulse: 108 Respirations: 20 Pulse Ox (%): 94 - Physical Exam General: Alert, In no apparent distress HEENT: Atraumatic, PERRLA, EOMI Neck: Supple, JVD not distended Respiratory: Clear to auscultation bilaterally, Normal air movement Cardiovascular: Regular rate/rhythm, Normal S1 S2 Gastrointestinal: Normal bowel sounds, No tenderness Musculoskeletal: No tenderness Integumentary: No rashes Neurological: Normal speech, Normal tone, Normal affect Lymphatics: No axilla or inguinal lymphadenopathy - Studies Medications List Reviewed: Yes Assessment & Plan - Problems (Diagnosis) (1) ESRD (end stage renal disease) Current Visit: Yes Status: Acute (2) HTN (hypertension) Current Visit: Yes Status: Acute - Plan Plan: 1. Replace Phu catheter 2. Arrange for hemodialysis as an outpatient 3. Further work-up per nephrology 4. Monitor labs 5. GI DVT prophylaxis Discharge Plan: Home Plan to discharge in: Greater than 2 days - Advance Directives Does patient have a Living Will: No Does patient have a Durable POA for Healthcare: No - Code Status/Comfort Care Code Status: Full Code Physician Review: Patient Assessed, Agree with Above Assessment and Plan Critical Care: No Time Spent Managing PTS Care (In Minutes): 35
--- NOTE | 2022-01-13 12:53 | P.PN ---
Date of Service: 01/13/22 Subjective Subjective: Patient doing well and plan to do to Tessio cath in the morning. Review of Systems 10-point ROS is otherwise unremarkable Physical Examination - Vital Signs Reviewed - Physical Exam General: Alert, In no apparent distress Respiratory: Clear to auscultation bilaterally, Normal air movement Cardiovascular: Regular rate/rhythm, Normal S1 S2 Gastrointestinal: Normal bowel sounds, No tenderness Musculoskeletal: No tenderness Neurological: Normal speech, Normal tone, Normal affect Assessment & Plan - Problems (Diagnosis) (1) ESRD (end stage renal disease) Current Visit: Yes Status: Acute (2) HTN (hypertension) Current Visit: Yes Status: Acute - Plan Continue with plan of care as mentioned below: 1. Tesio catheter placement in the morning 2. Arrange for hemodialysis as an outpatient; arrangement being completed by case management 3. Further work-up per nephrology 4. Monitor labs 5. GI DVT prophylaxis Discharge Plan: Home Plan to discharge in: Greater than 2 days - Advance Directives Does patient have a Living Will: No Does patient have a Durable POA for Healthcare: No - Code Status/Comfort Care Code Status: Full Code Physician Review: Patient Assessed, Agree with Above Assessment and Plan Critical Care: No Time Spent Managing PTS Care (In Minutes): 35
[2022-01-13] MEDS: HEPARIN 5000 UNIT/ML 1 ML VIAL IV SCH (14:00)
--- NOTE | 2022-01-13 14:13 | PN ---
Date of Progress Note: 01/13/2022 Subjective: The patient was admitted with acute kidney injury, acidosis, hyperkalemia. The patient was initiated on dialysis. Physical Examination: Vital Signs: When I saw the patient; blood pressure 123/70, pulse of 96, afebrile. Chest: Clear to auscultation. Heart: S1, S2. Regular. Abdomen: Soft, morbidly obese. Could not appreciate any organomegaly. Extremities: +1 edema. Neurologic: Alert. No focality. Laboratory Data: WBC 17.7, H and H 11.2/33.6. Sodium, chemistry still pending. Yesterday; potassium 6, creatinine of 12. Urinalysis, PC ratio not done. Serology still pending. Current Medications: The patient on include; 1. Vancomycin. 2. Cefepime. 3. Breathing treatment. 4. Tylenol. Assessment And Plan: 1. Acute kidney injury, unknown etiology, possible secondary to nonsteroidal use, nonoliguric with severe hyperkalemia, status post dialysis yesterday. The patient mentions that 1 year back, he has full chemistry, did not show any kidney disease. We will continue dialysis. The patient is going to need setup as outpatient dialysis setup. We will follow up. The patient is going to move to in [place], [place], needs to set up dialysis there. We will arrange with psych social worker. pt will need PC placment also giving the Unknown previous CKD as by the patient one year ago lab did not show any abnormal kidney function will consider f/u serology and get kidney Bx 2. Hypertension. We will keep utilizing blood pressure for ultrafiltration. 3. Hyperkalemia secondary to renal failure. We will dialyze on low potassium bath. We will follow up. 4. Uremia. The patient is going to be dialyzed. We will follow up repeated. Time spent examining the patient [id number], reviewing the data, placing order, discussing with by bedside, discussing with staff member including charge nurse and nursing and hospitalist 35 minutes. SHYAM Voice ID: [id number] Report ID: [id number] CECILIA
[2022-01-13] MEDS: D5W 1,000 ML with NA BICARB 8.4% 150 MEQ IV SCH ×2 (18:16)
[2022-01-13] MEDS: CEFEPIME 1 GM in NA CHLORIDE 0.9% 100 ML IV SCH (20:59)
[2022-01-14] MEDS: IPRATROPIUM BROM 0.5MG/2.5ML NEB SCH ×4 (03:00→19:55)
[2022-01-14] MEDS: ALBUTEROL 2.5 MG/3 ML NEB SOL NEB SCH ×4 (03:00→19:55)
[2022-01-14 06:39] LABS: Absolute Lymphocytes (CBC) 1.8 K/uL (0.7-4.9); Hematocrit 31.6 % (39.6-49.0); Lymphocytes % 12.3 % (15.3-44.8); MCV 84.7 fL (80-100); MPV 7.5 fL (7.6-11.3); RBC Red Blood Cell Count 3.73 M/uL (4.33-5.43)
[2022-01-14 06:56] LABS: Magnesium 2.6 mg/dL (1.8-2.4); Potassium 3.8 mmol/L (3.5-5.1)
[2022-01-14] MEDS: INSULIN -REGULAR HUMAN 50 UNIT/0.5 ML ML SQ SCH ×4 (07:30→20:21)
[2022-01-14] MEDS: ASPIRIN 81 MG CHEWABLE TABLET PO SCH (08:52)
[2022-01-14] MEDS ORDERED: NA CHLORIDE 0.9% 500 ML ONE (10:12)
[2022-01-14] MEDS ORDERED: NS 0.9% VIAL 10 ML ONE (10:32)
[2022-01-14] MEDS ORDERED: BUPIVACAINE 0.25% PF 10 ML VIAL ONE (10:32)
[2022-01-14] MEDS ORDERED: HEPARIN 5000 UNIT/ML 1 ML VIAL ONE (10:33)
[2022-01-14] MEDS ORDERED: NA CHLORIDE 0.9% 50 ML ONE (10:33)
[2022-01-14] MEDS ORDERED: MIDAZOLAM HCL 2 MG/2 ML INJ ONE (11:13)
[2022-01-14] MEDS ORDERED: FENTANYL CITR 100 MCG/2 ML ONE (11:13)
[2022-01-14] MEDS ORDERED: LIDOCAINE 1% MPF 5 ML VIAL ONE (11:13)
[2022-01-14] MEDS ORDERED: propofoL 200 MG/20 ML VIAL IV ONE (11:13)
[2022-01-14] MEDS ORDERED: ONDANSETRON 4 MG/2 ML VIAL ONE (11:14)
[2022-01-14] MEDS ORDERED: Phenylephrine HCl 10 MG/ML 1 ML VIAL ONE (12:34)
--- NOTE | 2022-01-14 12:58 | P.OP ---
Health Care Recruiter: Liliam Sanches Preoperative diagnosis: End Stage Renal Disease - need for hemodialysis Postoperative diagnosis: End Stage Renal Disease - need for hemodialysis Primary procedure: Placement of RIGHT internal jugular tunneled hemodialysis catheter Secondary procedure: Ultrasound, Flouroscopy, and micro-introducer used Other procedure(s): Removal of LEFT subclavian hemodialysis catheter Anesthesia: GETA + Local Estimated blood loss: <10cc Specimen: LEFT HD catheter Findings: dark non-pulsatile blood returned, flouroscopy and ultrasound confirmed Complications: None Implants: 19cm Curved HD catheter Transferred to: Recovery Room Condition: Good
[2022-01-14] MEDS ORDERED: NA CHLORIDE 0.9% 1,000 ML ONE (13:39)
--- NOTE | 2022-01-14 13:56 | RAD REPORT ---
EXAM DESCRIPTION: RAD - Fluoroscopy <1 Hour - 01/14/2022 1:43 pm FINDINGS: There were 8 portable C-arm views obtained during fluoroscopic assisted placement of a hem odialysis catheter. No suspicious or unexpected findings. Fluoro time was 0.1 minutes with a 2.93 mGy cumulative dose.
[2022-01-14] MEDS: HEPARIN 5000 UNIT/ML 1 ML VIAL IV SCH (14:00)
--- NOTE | 2022-01-14 14:37 | RAD REPORT ---
EXAM DESCRIPTION: RAD - Chest Single View - 01/14/2022 2:22 pm CLINICAL HISTORY: S/P HD CATH PLACEMENT COMPARISON: 01/11/2022 TECHNIQUE: AP portable chest image was obtained 01/14/2022 2:22 pm . FINDINGS: Lung volumes are very low either from shallow inspiration or intentional expiration techni que. Right-sided double-lumen hemodialysis catheter is in place. Short arm terminates in the mid SVC. Long arm terminates the distal SVC. There is no pneumothorax. No acute pleural or parenchymal process seen. Left lung field opacities seen on the January 11 study ar e fully or nearly fully resolved. No progressive lung parenchymal process. Heart and vasculature are normal. No acute bony abnormality seen. No acute aortic findings suspected . IMPRESSION: Right-sided hemodialysis catheter in good position. No pneumothorax or other emergent finding.
--- NOTE | 2022-01-14 15:25 | PN ---
Date of Progress Note: 01/14/2022 Subjective: Patient was admitted with renal failure and acute kidney injury. Patient, according to him, does not have any history before. Serology still pending. Patient morbidly obese. +1 protein, no activity in the urine. Physical Examination: Vital Signs: Blood pressure of 137/66, pulse of 90, afebrile. Chest: Clear to auscultation. Heart: S1, S2. Regular. Abdomen: Soft, nontender. Extremity: No edema. Neuro: Alert. No focality. Laboratory Data: For the patient; WBC 14.3, H and H 10.5/31.6. Sodium 135, potassium is 3.8, bicarb 31, BUN 84, creatinine 7.8, calcium of 7, magnesium of 2.8. Rheumatoid factor was negative. The rest of the serology is still pending. Serum protein electrophoresis is still pending. Current Medications: The patient on include: 1. Cefepime. 2. Vancomycin. 3. Tylenol. 4. D5 with bicarb. Assessment And Plan: 1. Acute kidney injury, normal size kidney, obstructive uropathy has been ruled out. Minimal proteinuria. No activity in the urine. Patient denied any previous history of kidney disease. We will proceed with arrangement for PermCath placement and we will arrange for kidney biopsy for the patient. We will follow up. 2. Patient waiting for placement. 3. Follow up serology. 4. Patient currently euvolemic. We will change the patient to 3 times a week. 5. Hypertension, controlled, optimal. Continue current treatment. 6. Hyperkalemia, corrected with the dialysis. 7. Acidosis, will be corrected with dialysis. Discontinue bicarb. 8. Anemia of chronic kidney disease with the presence of acute kidney injury. Light chain disease needs to be ruled out. Waiting for serum protein electrophoresis. 9. Secondary hyperparathyroidism. We will start the patient on calcitriol 0.5 mcg we will start the patient on binder. We will try to use jtb-lgaadiw-rflre binder given that his calcium in the 8 also. 10. Morbidly obese, as by primary. 11. Pneumonia. Continue current antibiotic. We will follow up with the primary. time spend exam the patient face to face , placing order , reviweing the lab and radiology data , discussing with patient, nursing staff in ER and hospitalist > 35 min ENMANUEL/JEY Voice ID: [id number] Report ID: [id number] CECILIA
[2022-01-14] MEDS: CALCITROL 0.25 MCG CAP PO SCH (16:11)
[2022-01-14] MEDS: CEFEPIME 1 GM in NA CHLORIDE 0.9% 100 ML IV SCH (20:15)
--- NOTE | 2022-01-15 00:37 | OP ---
Date of Procedure: 01/14/2022 Surgeon: Stephan Hernandez MD, Preoperative Diagnosis: End-stage renal disease/need for dialysis. Postoperative Diagnosis: End-stage renal disease/need for dialysis. Procedures Performed: 1.Placement of a right internal jugular tunneled hemodialysis catheter using ultrasound fluoroscopic guidance and interpretation. Microintroducer set used, 5-Kazakh introduction set. 2.Removal of left subclavian hemodialysis catheter. Anesthesia: General endotracheal with local. Estimated Blood Loss: Less than 10 cc. Specimen: Left hemodialysis catheter for ID only. Findings: Dark, nonpulsatile blood return. Fluoroscopy and ultrasound confirmed position within the jugular vein and to the confluence of the superior vena cava. Complications: None. Implants: 19 cm curved hemodialysis, HemoSplit catheter. Disposition: The patient transferred to recovery room in good condition. Procedure In Detail: After informed consent was obtained, the patient was brought to the operating r oom, prepped and draped in the usual fashion after adequate anesthesia was achieved. The patient was placed in steep Trendelenburg position. Ultrasound guidance was then used to cannulate the right in ternal jugular vein on the first attempt with a microintroducer needle. The microwire was advanced a t this point, and the needle removed. At this point, fluoroscopy confirmed position of the microwire advanced into the jugular vein and into the confluence of superior vena cava. Fluoroscopy confirmed the position of the wire at this point. I then made a sharan incision at the insertion site allowing for placement of the tract and eventual catheter placement. A micro introducer sheath of 5-Kazakh wa s then advanced over the wire using Seldinger technique. The microwire was removed. The standard wi re was then advanced into the microintroducer sheath and once again fluoroscopy confirmed position of the standard wire in the confluence of the superior vena cava. At this point, I found a portion of the chest wall appropriate for placement of the hemodialysis tract at the infraclavicular position. I anesthetized the skin in the entire tract leading to the insertion site, made a small sharan incision over the insertion site. Using the tunneling device, I brought the catheter out through this insert ion site at this point, and putting the cuff near the midportion going over the clavicle. At this po int, I performed sequential dilatation under fluoroscopic guidance and placed the introducer sheath i nto the jugular vein. The wire was removed at this point for the second portion. Wire out called an d the introducer sheath remained in place. At this point, I advanced the catheter into the SVC witho ut evidence of complications. I then removed the introducer sheath and confirmed position one last t caryn using fluoroscopy. I then pulled dark red nonpulsatile blood from both ports and flushed them wi th sterile saline until completely clear. Then, I advanced super flush into these to prevent any jeremy ts to form. These were then capped. The patient was taken out of Trendelenburg position at this poi nt. All skin incisions were copiously irrigated and closed with interrupted 3-0 nylon sutures and th e catheter was secured to the skin with the same set 3-0 nylon suture and a sterile dressing placed o claudy top. I then turned my attention to the left previously placed subclavian catheter which was in t he subclavian position. I then removed these sutures and pulled the catheter out after placing the p atient in steep Trendelenburg position. The patient then was placed in the neutral position. I irri gated the insertion site and closed using an interrupted 3-0 nylon and sterile dressing was placed ov er top. The patient tolerated the procedure without evidence of complication, transferred to PACU in good condition. All counts were correct at the end of the case. MARIA ISABEL/JYE Voice ID: [id number] Report ID: [id number]
[2022-01-15] MEDS: ALBUTEROL 2.5 MG/3 ML NEB SOL NEB SCH ×3 (01:25→15:15)
[2022-01-15] MEDS: IPRATROPIUM BROM 0.5MG/2.5ML NEB SCH ×3 (01:25→15:15)
--- NOTE | 2022-01-15 01:35 | P.PN ---
Date of Service: 01/14/22 Subjective Subjective: Tessio catheter has been placed. Review of Systems 10-point ROS is otherwise unremarkable Physical Examination - Vital Signs Reviewed - Physical Exam General: Alert, In no apparent distress Respiratory: Clear to auscultation bilaterally, Normal air movement Cardiovascular: Regular rate/rhythm, Normal S1 S2 Gastrointestinal: Normal bowel sounds, No tenderness Musculoskeletal: No tenderness Neurological: Normal speech, Normal tone, Normal affect Assessment & Plan - Problems (Diagnosis) (1) ESRD (end stage renal disease) Current Visit: Yes Status: Acute (2) HTN (hypertension) Current Visit: Yes Status: Acute - Plan Continue with plan of care as mentioned below: 1. Tesio catheter placed; Arrange for outpatient antibiotics 2. Arrange for hemodialysis as an outpatient; arrangement being completed by case management 3. Further work-up per nephrology; may want a biopsy prior to discharging 4. Monitor labs 5. GI DVT prophylaxis Discharge Plan: Home Plan to discharge in: Greater than 2 days - Advance Directives Does patient have a Living Will: No Does patient have a Durable POA for Healthcare: No - Code Status/Comfort Care Code Status: Full Code Physician Review: Patient Assessed, Agree with Above Assessment and Plan Critical Care: No Time Spent Managing PTS Care (In Minutes): 35
[2022-01-15 06:30] LABS: RBC Red Blood Cell Count 3.6 M/uL (4.33-5.43)
[2022-01-15 06:42] LABS: Potassium 4.5 mmol/L (3.5-5.1)
[2022-01-15 06:50] LABS: Hematocrit 30.2 % (39.6-49.0); Lymphocytes % 10.8 % (15.3-44.8); MCV 84.8 fL (80-100); MPV 7.3 fL (7.6-11.3); RBC Red Blood Cell Count 3.56 M/uL (4.33-5.43)
[2022-01-15 06:51] LABS: Absolute Lymphocytes (CBC) 1.4 K/uL (0.7-4.9)
[2022-01-15 07:04] LABS: Ferritin 696.3 ng/mL (26-388); Thyroid Stimulating Hormone 0.889 uIU/mL (0.360-3.740)
[2022-01-15] MEDS: INSULIN -REGULAR HUMAN 50 UNIT/0.5 ML ML SQ SCH ×4 (07:30→21:00)
[2022-01-15] MEDS: ASPIRIN 81 MG CHEWABLE TABLET PO SCH (08:11)
[2022-01-15] MEDS ORDERED: VANCOMYCIN 1.5 GM in NA CHLORIDE 0.9% 500 ML IVPB ONE (10:00)
[2022-01-15] MEDS ORDERED: DOCUSATE NA 100 MG CAP PO PRN (10:15)
[2022-01-15] MEDS ORDERED: LACTULOSE 20 GM/30 ML UCUP PO PRN (10:15)
[2022-01-15] MEDS: SEVELAMER CARBONATE 800 MG TABLET PO SCH ×2 (12:00→16:52)
--- NOTE | 2022-01-15 12:48 | PN ---
Date of Progress Note: 01/15/2022 Subjective: The patient doing well. The patient was admitted with acute kidney injury, unknown etio logy. The patient denied any previous history of chronic kidney disease. The patient had a PermCath placement yesterday. The patient seen on dialysis today, tolerating the dialysis. Physical Examination: Vital Signs: Blood pressure 120/82, pulse of 95, afebrile. Chest: Clear to auscultation. Heart: S1, S2. Regular. Abdomen: Morbidly obese. Could not appreciate any organomegaly. Extremities: +1 edema. Neuro: Alert. No focality. No tremor. Laboratory Data: WBC 12.8, H and H 10.1/30.2. Sodium 135, potassium 4.5, bicarb 30, BUN 92, creatin ine 6.9, calcium of 7, iron saturation of 30, ferritin 969. PTH of 355. Current Medications: The patient on include; 1.Aspirin. 2.Cefepime. 3.Vancomycin. 4.Labetalol. 5.Tylenol. 6.Calcitriol. Assessment And Plan: 1.Acute kidney injury, unknown etiology, possible chronic kidney disease and progression to end-stag e renal disease. Given the unknown history and the proteinuria with his age, we are going to proceed with kidney biopsy. We will arrange for kidney biopsy tomorrow. We will follow up. The patient st ill waiting on set up for outpatient dialysis as outpatient at [facility]. 2.Hypertension, controlled, optimal. Continue current medication. 3.Anemia of chronic kidney disease. We will start the patient on LEIA if hemoglobin drops to below 1 0. 4.Secondary hyperparathyroidism. Continue calcitriol. We will start the patient on sevelamer. 5.Constipation. I am going to start the patient on docusate and lactulose. ENMANUEL/JEY Voice ID: [id number] Report ID: [id number]
[2022-01-15] MEDS ORDERED: VANCOMYCIN 2 GM in NA CHLORIDE 0.9% 500 ML IVPB ONE (13:00)
[2022-01-15] MEDS ORDERED: IPRATROPIUM BROM 0.5MG/2.5ML NEB PRN (15:19)
[2022-01-15] MEDS ORDERED: ALBUTEROL 2.5 MG/3 ML NEB SOL NEB PRN (15:19)
[2022-01-15 20:01] LABS: Albumin, (SPE) 2.5 g/dL (3.8-4.8); Alpha-1-Globulins 0.7 g/dL (0.2-0.3); Alpha-2-Globulins 1.3 g/dL (0.5-0.9); Gamma Globulins 1.1 g/dL (0.8-1.7); INTERPRETATION REPORT
[2022-01-15] MEDS: CEFEPIME 1 GM in NA CHLORIDE 0.9% 100 ML IV SCH (20:52)
[2022-01-16 06:17] LABS: Specific Gravity 1.015 (1.005-1.030); Urine Bilirubin Negative (Negative); Urine Blood 3+ (Negative); Urine Clarity Slightly Cloudy (Clear); Urine Color Yellow (Yellow); Urine Glucose Negative (Negative); Urine Protein 1+ (Negative); Urine Urobilinogen 0.2 mg/dL (0.2-1.0); Urine pH 5.5 (5.0-7.0)
[2022-01-16 06:26] LABS: Urine RBC <5 /HPF (None Seen)
[2022-01-16 06:29] LABS: Albumin 1.9 g/dL (3.4-5.0); Phosphorus 4.6 mg/dL (2.5-4.9); Potassium 3.8 mmol/L (3.5-5.1)
[2022-01-16] MEDS: INSULIN -REGULAR HUMAN 50 UNIT/0.5 ML ML SQ SCH ×3 (07:30→16:30)
[2022-01-16] MEDS ORDERED: POTASSIUM CL SA 10 MEQ TAB PO ONE (07:38)
[2022-01-16] MEDS: SEVELAMER CARBONATE 800 MG TABLET PO SCH ×3 (08:00→17:00)
[2022-01-16 09:12] VITALS: O2SAT 93
[2022-01-16] MEDS ORDERED: MIDAZOLAM HCL 2 MG/2 ML INJ ONE (09:50)
[2022-01-16] MEDS ORDERED: FENTANYL CITR 100 MCG/2 ML ONE (09:50)
[2022-01-16] MEDS ORDERED: NALOXONE 0.4 MG/ML VIAL ONE (09:51)
[2022-01-16] MEDS ORDERED: VANCOMYCIN 1 GM in NA CHLORIDE 0.9% 250 ML IVPB SCH (10:00)
[2022-01-16] MEDS ORDERED: NA CHLORIDE 0.9% 1,000 ML ONE (10:01)
[2022-01-16 10:04] LABS: HIV AG/AB 4TH GEN Non-reactive (Non-reactive)
--- NOTE | 2022-01-16 10:15 | P.PN ---
Subjective Date of Service: 01/16/22 Chief Complaint: SOB, cough Subjective: Other (Underwent kidney biopsy today.) Physical Examination - Vital Signs Temperature: 97.8 F Blood Pressure: 145/78 Pulse: 89 Respirations: 20 Pulse Ox (%): 93 - Physical Exam General: In no apparent distress HEENT: Atraumatic, Normocephalic Neck: Supple, JVD not distended Respiratory: Other (symmetric chest expansion) Cardiovascular: No rubs, No murmurs Gastrointestinal: Soft and benign, No rebound Musculoskeletal: No clubbing Integumentary: No warmth Neurological: Normal tone Urinary: Other (No bladder distention) External genitalia: Deferred Rectal: Deferred - Studies Medications List Reviewed: Yes Assessment And Plan - Plan 1. Acute kidney injury, unknown etiology, possible chronic kidney disease and progression to end-stage renal disease. Given the unknown history and the proteinuria with his age, he underwent kidney biopsy on 01/16/2022. Received HD yesterday. For outpt HD qMWF at [facility]. Next HD Friday 01/19 3pm at [facility]. 2. Hypertension, controlled, optimal. Continue current medication. 3. Anemia of chronic kidney disease. We will start the patient on LEIA if hemoglobin drops to below 10. 4. Secondary hyperparathyroidism. Continue calcitriol. We will start the patient on sevelamer. 5. Constipation. Docusate + lactulose. Physician Review: Patient Assessed, Agree with Above Assessment and Plan
[2022-01-16] MEDS: ASPIRIN 81 MG CHEWABLE TABLET PO SCH (11:49)
[2022-01-16] MEDS: CALCITROL 0.25 MCG CAP PO SCH (11:50)
--- NOTE | 2022-01-16 12:34 | RAD REPORT ---
EXAM DESCRIPTION: CT - Renal Biopsy CT - 01/16/2022 11:25 am CLINICAL HISTORY: RENAL FAILURE Flank pain COMPARISON: No comparisons FINDINGS: Preoperative diagnosis: Flank pain, renal failure Post operative diagnosis: Same Conscious Sedation: 45 minutes of IV conscious sedation utilizing IV fentanyl and midazolam. Patient was continuously monitored by nursing staff. Contrast used: NONE Estimated blood loss: less than 5 mL Specimens: 3 x 18 gauge core specimens The patient was placed prone on the table and the left posterior flank area was prepped and draped in the usual sterile fashion. 1% lidocaine was infiltrated into the subcutaneous tissues for local anes thesia. Under computed tomographic guidance, a 17 gauge introducer was advanced into the inferior lef t kidney. Subsequently, a 18 gauge, 15 cm long, 20 mm throw core biopsy gun was advanced into the les ion and 3 cores were obtained. Postprocedure imaging demonstrated no complications. Samples were given to pathology for analysis. Th e patient tolerated the procedure without immediate complication and transferred to his hospital room in stable condition. IMPRESSION: Successful CT-guided nonfocal left renal biopsy. 45 minutes of IV conscious sedation was utilized. All CT scans are performed using dose optimization technique as appropriate and may include automated exposure control or mA/KV adjustment according to patient size.
--- NOTE | 2022-01-16 14:43 | P.PN ---
Date of Service: 01/15/22 Subjective Subjective: Doing well no new complaints Review of Systems 10-point ROS is otherwise unremarkable Physical Examination - Vital Signs Reviewed - Physical Exam General: Alert, In no apparent distress Respiratory: Clear to auscultation bilaterally, Normal air movement Cardiovascular: Regular rate/rhythm, Normal S1 S2 Gastrointestinal: Normal bowel sounds, No tenderness Musculoskeletal: No tenderness Neurological: Normal speech, Normal tone, Normal affect Assessment & Plan - Problems (Diagnosis) (1) ESRD (end stage renal disease) Current Visit: Yes Status: Acute (2) HTN (hypertension) Current Visit: Yes Status: Acute - Plan Continue with plan of care as mentioned below: 1. Tesio catheter placed; Arrange for outpatient hemodialysis 2. Arrange for hemodialysis as an outpatient; arrangement being completed by case management 3. Further work-up per nephrology; may want a biopsy prior to discharging 4. Monitor labs 5. GI DVT prophylaxis Discharge Plan: Home Plan to discharge in: Greater than 2 days - Advance Directives Does patient have a Living Will: No Does patient have a Durable POA for Healthcare: No - Code Status/Comfort Care Code Status: Full Code Physician Review: Patient Assessed, Agree with Above Assessment and Plan Critical Care: No Time Spent Managing PTS Care (In Minutes): 35
--- NOTE | 2022-01-16 14:45 | P.DS ---
Discharge Date: 01/16/22 Disposition: ROUTINE DISCHARGE Discharge Condition: GOOD Reason for Admission: SOB, cough - Problems (1) ESRD (end stage renal disease) Current Visit: Yes Status: Acute (2) HTN (hypertension) Current Visit: Yes Status: Acute Brief History of Present Illness: Patient is a 51-year-old male with a past medical history significant for hypertension and morbid obesity who presents with complaint of cough and upper respiratory symptoms that has been ongoing for the past 1 week. Patient reported that he was exposed to COVID-19 infection at work. Patient reported that he initially started coughing then a couple days later patient developed sore throat and rhinorrhea. Patient started having shortness of breath and difficulty breathing 2 days ago. Patient reported associated signs and symptoms of fatigue, weakness, headache and dizziness. Patient denies any other signs or symptoms. Symptoms are aggravated by exertion and relieved by nothing. Patient decided to present to the hospital due to worsening symptoms. Of note, patient reported that he has not had lab work done or followed up with a doctor in a long time. Hospital Course: Patient has done well during hospitalization. Renal function is improved. Patient is on hemodialysis. We will remove Phu catheter prior to discharge. Patient is clinically doing well patient is stable for discharge. Dialysis time set up for Wednesday. He is having finished hemodialysis today and renal biopsy results will be obtained as an outpatient by nephrology. Patient is stable for discharge home. Vital Signs/Physical Exam: Temp Pulse Resp BP Pulse Ox 97.7 F 100 H 18 160/96 H 93 01/16/22 12:00 01/16/22 12:00 01/16/22 12:00 01/16/22 12:00 01/16/22 12:00 General: Alert, In no apparent distress, Oriented x3 Laboratory Data at Discharge: WBC 12.8 K/uL (4.3-10.9) H 01/15/22 05:47 Hgb 10.1 g/dL (13.6-17.9) L 01/15/22 05:47 Hct 30.2 % (39.6-49.0) L 01/15/22 05:47 Plt Count 447 K/uL (152-406) H 01/15/22 05:47 PT Cancelled 01/16/22 09:10 INR Cancelled 01/16/22 09:10 APTT Cancelled 01/16/22 09:10 Sodium 138 mmol/L (136-145) 01/16/22 05:45 Potassium 3.8 mmol/L (3.5-5.1) 01/16/22 05:45 BUN 65 mg/dL (7-18) H D 01/16/22 05:45 Creatinine 5.10 mg/dL (0.55-1.3) H* D 01/16/22 05:45 Glucose 114 mg/dL (74-106) H 01/16/22 05:45 Uric Acid Cancelled 01/11/22 13:17 Phosphorus 4.6 mg/dL (2.5-4.9) 01/16/22 05:45 Magnesium 2.6 mg/dL (1.8-2.4) H 01/14/22 05:58 Total Bilirubin 0.3 mg/dL (0.2-1.0) 01/12/22 06:57 AST 96 U/L (15-37) H 01/12/22 06:57 ALT 151 U/L (12-78) H 01/12/22 06:57 Alkaline Phosphatase 93 U/L (45-117) 01/12/22 06:57 Triglycerides 350 mg/dL (<150) H 01/11/22 16:16 Cholesterol 176 mg/dL (<200) 01/11/22 16:16 HDL Cholesterol 18 mg/dL (40-60) L 01/11/22 16:16 Cholesterol/HDL Ratio 9.78 01/11/22 16:16 Home Medications: Losartan/Hydrochlorothiazide [Losartan-Hctz 100-25 mg Tab] 1 each PO DAILY 01/12/22 Aspirin Chewable [Aspirin Chewable*] 81 mg PO DAILY #30 tab.chew 01/16/22 Calcitrol [Rocaltrol*] 0.5 mcg PO Q48H #20 cap 01/16/22 Docusate [Colace Cap*] 100 mg PO DAILY PRN #30 cap 01/16/22 Hydrocodone 5/APAP 325 [Laura 5/325*] 1 tab PO Q6H PRN #30 tab 01/16/22 Metoprolol Tartrate [Lopressor] 25 mg PO BID #60 tab 01/16/22 New Medications: Aspirin Chewable [Aspirin Chewable*] 81 mg PO DAILY #30 tab.chew Docusate [Colace Cap*] 100 mg PO DAILY PRN #30 cap PRN Reason: Constipation Metoprolol Tartrate [Lopressor] 25 mg PO BID #60 tab Hydrocodone 5/APAP 325 [Laura 5/325*] 1 tab PO Q6H PRN #30 tab PRN Reason: Pain Scale 5-7 (Moderate) Calcitrol [Rocaltrol*] 0.5 mcg PO Q48H #20 cap Physician Discharge Instructions: -DC IV and DC home -Follow-up with PCP in 1 to 2 weeks -Follow-up with nephrology; dialysis clinic on Wednesday; physician appointment in 1 to 2 weeks -Please call Dr. Varela at [phone] if any questions regarding hospital stay -Please call nursing station at [phone] if any nursing or medication questions -Return to the emergency room if symptoms worsen Diet: Renal Activity: Fall precautions Followup: Christiano HERMAN,Jerrell Fajardo DO [Primary Care Provider] - Time spent managing pt's care (in minutes): 35
--- NOTE | 2022-01-16 15:30 | CON ---
Date of Consultation: 01/13/2022 Brief History Of Present Illness: The patient is a 51-year-old gentleman admitted on 01/11/2022 with shortness of breath and cough. He has a past medical history significant for hypertension, morbid o besity, presents with complaining of cough and upper respiratory symptoms for 1 week prior to his adm ission. He was concerned about COVID-19 exposure prior, but he continued develop sore throat, rhinor dano, shortness of breath, difficulty breathing, and as such came to the emergency room with the abov e-stated complaints. He is noted to have acute renal dysfunction and a catheter was placed in the le ft subclavian position for the purpose of hemodialysis due to his worsening progressive renal dysfunc tion. A dialysis was challenging through this catheter and as such I was requested to place an addit ional catheter for hemodialysis access. Past Medical History: Significant for hypertension, morbid obesity. Social History: He denies smoking, alcohol, or recreational drug use. Family History: Noncontributory. Review of Systems: Ten-point review of systems other than HPI, denies. Physical Examination: General: At the time examination, he is awake, alert, oriented. Psychiatric: He is appropriate conversive. HEENT: Normocephalic. His sclerae are anicteric. His mucous membranes are moist. Oropharynx is cl ear. Neck: Supple without JVD. Chest: Normal expansion and excursion. He has a left subclavian temporary hemodialysis catheter in place. Abdomen: He has morbid obesity generally. His abdomen is rotund. There is no tenderness to palpati on. Extremities: He has some 1+ pitting edema in lower extremities. Skin: Warm and dry. Laboratory Data: Revealed a white blood cell count of 17.7, hemoglobin 11.2, hematocrit of 33.6, gabriela telet count 523. His coags showed a PT 11.2, INR 1.05. D-dimer was . He had a sodium 136 , potassium was 6.0, chloride 93, carbon dioxide 21, BUN 120, creatinine was 12, glucose 179. Assessment/plan: This is a 51-year-old male who has acute renal dysfunction and I have been requeste d to place a dialysis catheter with difficult potassium management for purpose of initiation of dialy sis. The patient is currently eating during my examination with him, and as such he has completed al most a complete meal and therefore we would not be able to proceed with permanent dialysis catheter p lacement for some period of time and as such I have recommended placement of a temporary femoral dial ysis catheter, dialyzing the patient with plans to ultimately place a tunneled hemodialysis catheter. I have explained the risks, benefits, and alternatives to the above stated plan including, but not limited to bleeding, infection, damage to surrounding tissue, need for further operation and procedur es, injury to vascular structures, pneumothorax or collapsed lung, possible catheter dysfunction, tro uble with catheter and ongoing unanticipated consequences such as heart attack, strokes, blood clots, and other unforeseen complication related to anesthesia. The patient agrees to proceed as indicated . Continue medical management. TK/MODL Voice ID: [id number] Report ID: [id number]
[2022-01-17 03:45] VITALS: BP 145/78; TEMP 97.8
== END 2022-01-16 20:20 | disposition home or self-care (01) | DRG 871 ==
LOC: ER 11:34 → ERHOLD 13:20 → 2ND 01-12 20:04
PROVIDERS: ADMIT Internal Medicine; ATTEND Internal Medicine
PROC: 05H633Z Insertion of Infusion Device into Left Subclavian Vein, Percutaneous Approach (ICD-10-PCS; principal; 2022-01-11)
PROC: 5A1D70Z Performance of Urinary Filtration, Intermittent, Less than 6 Hours Per Day (ICD-10-PCS; 2022-01-11)
PROC: 06HN33Z Insertion of Infusion Device into Left Femoral Vein, Percutaneous Approach (ICD-10-PCS; 2022-01-12)
PROC: 5A1D70Z Performance of Urinary Filtration, Intermittent, Less than 6 Hours Per Day (ICD-10-PCS; 2022-01-12)
PROC: 0JH63XZ Insertion of Tunneled Vascular Access Device into Chest Subcutaneous Tissue and Fascia, Percutaneous Approach (ICD-10-PCS; 2022-01-14)
PROC: 02HV33Z Insertion of Infusion Device into Superior Vena Cava, Percutaneous Approach (ICD-10-PCS; 2022-01-14)
PROC: 05PY33Z Removal of Infusion Device from Upper Vein, Percutaneous Approach (ICD-10-PCS; 2022-01-14)
PROC: 0TB13ZX Excision of Left Kidney, Percutaneous Approach, Diagnostic (ICD-10-PCS; 2022-01-16)
DX: A41.9 Sepsis, unspecified organism (principal); J18.9 Pneumonia, unspecified organism; N18.6 End stage renal disease; J96.00 Acute respiratory failure, unspecified whether with hypoxia or hypercapnia; N17.0 Acute kidney failure with tubular necrosis; E87.2 Acidosis; Z68.42 Body mass index [BMI] 45.0-49.9, adult; E87.1 Hypo-osmolality and hyponatremia; I12.0 Hypertensive chronic kidney disease with stage 5 chronic kidney disease or end stage renal disease; N25.81 Secondary hyperparathyroidism of renal origin; R65.20 Severe sepsis without septic shock; E87.5 Hyperkalemia; R79.89 Other specified abnormal findings of blood chemistry; E66.01 Morbid (severe) obesity due to excess calories; D63.1 Anemia in chronic kidney disease; K59.00 Constipation, unspecified; Z20.822 Contact with and (suspected) exposure to COVID-19; Z23 Encounter for immunization
CPT/HCPCS: 36415; 51702; 71045; 71250; 74176; 76000; 78582; 80048; 80053; 80061; 80069; 80076; 80202; 81001; 81003; 82550; 82607; 82728; 82805; 82947; 83036; 83520; 83540; 83605; 83615; 83735; 83880; 83935; 83970; 84100; 84132; 84165; 84300; 84443; 84466; 84484; 84550; 85025; 85044; 85379; 85610; 85652; 86021; 86038; 86140; 86160; 86225; 86334; 86430; 86705; 86706; 86803; 87040; 87340; 87389; 87811; 88300; 90471; 90732; 90935; 93005; 94640; 94660; 94760; 96372; 99285; A9540; A9558; C1752; J0610; J0692; J0696; J1644; J1650; J1815; J2250; J2310; J2370; J2405; J2704; J2930; J3010; J3370; J7030; J7040; J7050; J7512; U0003